=== PATIENT | male | born 1960 | race Caucasian/White ===

== ENCOUNTER 2017-05-23 18:29 | Inpatient (IN) | payer OTHER ==
[~2017-05-23] VITALS: Ht 188 cm; Wt 131.5 kg
[2017-05-23] MEDS ORDERED: IOHEXOL 350 MG/ML 10 ML VIAL (for RAD DIAG) IVCONTRAST ONE (18:30)
[2017-05-23] MEDS ORDERED: PROPOFOL 1000 MG/100 ML INJ 100 ML ONE (18:35)
[2017-05-23] MEDS ORDERED: ROCURONIUM INJ 50 MG/5 ML VIAL ONE ×2 (18:36→21:40)
[2017-05-23 19:04] LABS: AUTOMATED NEUTROPHIL # 10.3 TH/MM3 (1.8-7.7); BASOPHIL # 0.1 TH/MM3 (0-0.2); BASOPHIL % 0.4 % (0.0-2.0); EOSINOPHIL # 0.3 TH/MM3 (0-0.4); EOSINOPHIL % 1.9 % (0.0-4.0); HEMATOCRIT 37.8 % (39.0-51.0); HEMOGLOBIN 12.4 GM/DL (13.0-17.0); LYMPH % 35.5 % (9.0-44.0); LYMPHOCYTE # 6.4 TH/MM3 (1.0-4.8); MEAN CELL VOLUME 99.6 FL (80.0-100.0); MEAN CORPUSCULAR HEMOGLOBIN 32.7 PG (27.0-34.0); MEAN CORPUSCULAR HGB CONC 32.9 % (32.0-36.0); MEAN PLATELET VOLUME 8.7 FL (7.0-11.0); MONO % 4.6 % (0.0-8.0); MONOCYTE # 0.8 TH/MM3 (0-0.9); NEUT % 57.6 % (16.0-70.0); PLATELET COUNT 226 TH/MM3 (150-450); RED BLOOD COUNT 3.79 MIL/MM3 (4.50-5.90); RED CELL DISTRIBUTION WIDTH 13.7 % (11.6-17.2); WHITE BLOOD COUNT 17.9 TH/MM3 (4.0-11.0)
[2017-05-23] MEDS ORDERED: LIDOCAINE 1%/EPINEPHrine 1:100,000 SOLN 30 ML VIAL ONE (19:06)
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
[2017-05-23] MEDS ORDERED: MIDAZOLAM HCL 5 MG/ML VIAL (1 ML) ONE (19:08)
[2017-05-23 19:16] VITALS: O2SAT 96
[2017-05-23 19:16] LABS: INTERNATIONAL NORMALIZED RATIO 1.3 RATIO
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
[2017-05-23 19:28] VITALS: O2SAT 100
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
[2017-05-23 19:31] VITALS: O2SAT 100
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
[2017-05-23 19:49] VITALS: O2SAT 100
[2017-05-23] MEDS ORDERED: SODIUM CHLOR 0.9% 1000 ML INJ 1,000 ML IV SCH (19:52)
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
[2017-05-23] MEDS ORDERED: MISCELLANEOUS NURSING INFORMATION XX SCH (20:00)
[2017-05-23] MEDS ORDERED: PROPOFOL 1000 MG/100 ML INJ 100 ML IV PRN ×2 (20:00→21:30)
[2017-05-23] MEDS ORDERED: LACTULOSE SYRUP 20 GM/30 ML CUP PO PRN (20:00)
[2017-05-23] MEDS ORDERED: fentaNYL DRIP 250 ML IV PRN (20:00)
[2017-05-23] MEDS ORDERED: CHLORHEXIDINE GLUCONATE 2 % 1 PACK (2 CLOTHS) TOP PRN (20:00)
[2017-05-23] MEDS ORDERED: BISACODYL 10 MG SUPP RECTAL PRN (20:00)
[2017-05-23] MEDS ORDERED: MAGNESIUM HYDROXIDE SUSP 30 ML CUP PO PRN (20:00)
[2017-05-23] MEDS ORDERED: SENNOSIDES 8.6 MG TAB PO PRN (20:00)
[2017-05-23] MEDS ORDERED: DIPHTH/TETANUS/ACEL PERTUSSIS (BOOSTER) 0.5 ML VIAL/PFS IM ONE (20:02)
[2017-05-23] MEDS ORDERED: ceFAZolin 2 GM PREMIX 50 ML IV STA (20:02)
[2017-05-23 20:05] LABS: BANDS 1 % (0-6); BASOPHILS 1 % (0-2); LYMPHOCYTES 41 % (9-44); MONOCYTES 5 % (0-8); NEUTROPHIL # MANUAL DIFF 9.1 TH/MM3 (1.8-7.7); POLYS (SEG NEUTROPHILS) 50 % (16-70)
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
[2017-05-23] MEDS ORDERED: ETOMIDATE 40 MG/20 ML VIAL ONE (21:39)
[2017-05-23] MEDS ORDERED: SUCCINYLCHOLINE CHLORIDE 200 MG/10 ML VIAL ONE (21:41)
[2017-05-23] MEDS ORDERED: GLUCAGON 1 MG/ML VIAL OTHER PRN (21:45)
[2017-05-23] MEDS ORDERED: TERBUTALINE INJ 1 MG/ML AMP SQ PRN (21:45)
[2017-05-23] MEDS ORDERED: DEXTROSE 50% IN WATER 50 ML VIAL(D50) IV PUSH PRN (21:45)
[2017-05-23] MEDS ORDERED: NOREPINEPHRINE INJ 4 MG in SODIUM CHLOR 0.9% 250 ML INJ 246 ML IV PRN ×2 (21:45→22:15)
[2017-05-23 22:00] VITALS: BP 101/86; PULSE 90; RESP 18; TEMP 99.9; O2SAT 99
[2017-05-23] MEDS: PROPOFOL 1000 MG/100 ML INJ 100 ML IV PRN (22:41)
[2017-05-23] MEDS: fentaNYL DRIP 250 ML IV PRN (22:42)
[2017-05-23] MEDS: NS + KCL 20 MEQ INJ 1,000 ML IV SCH (22:43)
[2017-05-23] MEDS: FAMOTIDINE 20 MG/2 ML VIAL IV PUSH SCH (23:00)
[2017-05-23] MEDS: DOCUSATE SODIUM 50 MG/SENNA 8.6 MG TAB PO SCH (23:00)
[2017-05-23] MEDS: levETIRAcetam INJ 500 MG in SODIUM CHLORIDE 0.9% INJ 100 ML IV SCH (23:04)
[2017-05-23] MEDS: INSULIN ASPART SUPPLEMENTAL SCALE SQ SCH (23:16)
[2017-05-24] VITALS (12 sets, daily range): BP systolic 94–120; BP diastolic 55–73; PULSE 89–105; RESP 18–22; TEMP 100–101.7; O2SAT 94–100
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
[2017-05-24] MEDS: ACETAMINOPHEN 325 MG TAB PO PRN (03:37)
[2017-05-24] MEDS: CHLORHEXIDINE GLUCONATE 2 % 1 PACK (2 CLOTHS) TOP SCH (04:00)
[2017-05-24] MEDS: NS + KCL 20 MEQ INJ 1,000 ML IV SCH (04:10)
[2017-05-24] MEDS: PROPOFOL 1000 MG/100 ML INJ 100 ML IV PRN ×4 (04:22→23:50)
[2017-05-24 04:26] LABS: AUTOMATED NEUTROPHIL # 6.9 TH/MM3 (1.8-7.7); BASOPHIL % 0.2 % (0.0-2.0); HEMATOCRIT 27.5 % (39.0-51.0); HEMOGLOBIN 9.4 GM/DL (13.0-17.0); LYMPH % 10.8 % (9.0-44.0); MEAN CELL VOLUME 97.1 FL (80.0-100.0); MEAN CORPUSCULAR HEMOGLOBIN 33.3 PG (27.0-34.0); MEAN CORPUSCULAR HGB CONC 34.3 % (32.0-36.0); MONO % 11.9 % (0.0-8.0); MONOCYTE # 1.1 TH/MM3 (0-0.9); NEUT % 77.1 % (16.0-70.0); PLATELET COUNT 172 TH/MM3 (150-450); RED BLOOD COUNT 2.83 MIL/MM3 (4.50-5.90); RED CELL DISTRIBUTION WIDTH 13.3 % (11.6-17.2); WHITE BLOOD COUNT 8.9 TH/MM3 (4.0-11.0)
[2017-05-24 04:48] LABS: BICARBONATE 21.3 MEQ/L (21.0-32.0); CALCIUM 7.4 MG/DL (8.5-10.1); CREATININE 2.03 MG/DL (0.60-1.30); MAGNESIUM 1.7 MG/DL (1.5-2.5)
[2017-05-24 05:01] LABS: CALCIUM-PROTEIN CORRECTED 8.8 MG/DL (8.5-10.1); TOTAL PROTEIN 4.7 GM/DL (6.4-8.2)
--- NOTE | 2017-05-24 05:55 | RADRPT ---
EXAM DATE/TIME: 05/24/2017 04:43 [facility] COMPARISON: CHEST SINGLE AP, May 23, 2017, 18:29. INDICATIONS : Respiratory distress MEDICAL HISTORY : None. SURGICAL HISTORY : None. ENCOUNTER: Subsequent ACUITY: 3 days PAIN SCORE: Non-responsive. LOCATION: Bilateral chest FINDINGS: There is bibasilar atelectasis. ET tube, and NG tube have not changed. Arterial area seen with dense calcifications adjacent to bilateral scapula chronic in nature. CONCLUSION: Bibasilar atelectasis. Megan Sanchez MD on May 24, 2017 at 5:53 Board Certified Radiologist. This report was verified electronically.
[2017-05-24] MEDS: INSULIN ASPART SUPPLEMENTAL SCALE SQ SCH ×2 (06:00→18:00)
[2017-05-24] MEDS ORDERED: SODIUM CHLOR 0.9% 1000 ML INJ 1,000 ML IV ONE (06:45)
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
[2017-05-24] MEDS: CHLORHEXIDINE 0.12% (ORAL KIT) 15 ML CUP MT SCH ×2 (08:00→20:41)
[2017-05-24] MEDS ORDERED: CHLORHEXIDINE 0.12% (ORAL KIT) 15 ML CUP MT SCH (08:00)
[2017-05-24] MEDS: DOCUSATE SODIUM 50 MG/SENNA 8.6 MG TAB PO SCH ×2 (08:44→20:41)
[2017-05-24] MEDS: levETIRAcetam INJ 500 MG in SODIUM CHLORIDE 0.9% INJ 100 ML IV SCH ×2 (08:51→20:40)
[2017-05-24] MEDS: FAMOTIDINE 20 MG/2 ML VIAL IV PUSH SCH ×2 (08:52→20:40)
[2017-05-24] MEDS ORDERED: SODIUM CHLOR 0.9% 1000 ML INJ 1,000 ML IV SCH (10:00)
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
[2017-05-24] MEDS ORDERED: NOREPINEPHRINE 4 MG/4 ML AMP ONE (12:20)
--- NOTE | 2017-05-24 12:57 | PD.PROCEDR ---
Procedure Note Procedure DX: Traumatic Brain Injury OP: Insertion Left Radial Arterial Line ([id number]) Procedure: Bennett test normal left hand. Left wrist supinated, prepped and draped. Left radial artery cannulated with ultrasound guidance and wire advanced. Cannula advanced over wire to 3 cm. Good waveform observed. Dressing applied. Circulation to left hand intact after procedure. Brandon Moore MD May 24, 2017 12:57
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
[2017-05-24] MEDS ORDERED: BACITRACIN TOP OINT 15 GM TUBE TOPICAL SCH (14:15)
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
[2017-05-24] MEDS: SODIUM CHLORIDE 23.4% INJ 188 MEQ in SODIUM CHLOR 0.9% 1000 ML INJ 1,000 ML IV SCH (14:48)
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
[2017-05-24] MEDS: RESP: ALBUTEROL 2.5 MG/IPRATROPIUM 0.5 MG NEB (SCH) NEB ×2 (16:50→20:31)
[2017-05-24] MEDS: fentaNYL DRIP 250 ML IV PRN (17:50)
[2017-05-24] MEDS: NOREPINEPHRINE INJ 8 MG in SODIUM CHLORID 0.9% 500 ML INJ 492 ML IV PRN (20:54)
[2017-05-25] VITALS (15 sets, daily range): BP systolic 115–135; BP diastolic 61–69; PULSE 67–95; RESP 22–24; TEMP 99.5–100.6; O2SAT 94–100
[2017-05-25] MEDS: RESP: ALBUTEROL 2.5 MG/IPRATROPIUM 0.5 MG NEB (SCH) NEB ×4 (03:18→20:24)
[2017-05-25] MEDS: CHLORHEXIDINE GLUCONATE 2 % 1 PACK (2 CLOTHS) TOP SCH (04:00)
--- NOTE | 2017-05-25 04:18 | RADRPT ---
EXAM DATE/TIME: 05/25/2017 04:01 [facility] COMPARISON: No previous studies available for comparison. INDICATIONS : Follw up hemorrhage. RADIATION DOSE: 57.46 CTDIvol (mGy) MEDICAL HISTORY : Non-responsive. SURGICAL HISTORY : Non-responsive. ENCOUNTER: Subsequent ACUITY: 2 days PAIN SCALE: Non-responsive LOCATION: chest TECHNIQUE: Multiple contiguous axial images were obtained of the head. Using automated exposure control and adj ustment of the mA and/or kV according to patient size, radiation dose was kept as low as reasonably a chievable to obtain optimal diagnostic quality images. DICOM format image data is available electro nically for review and comparison. FINDINGS: There is an evolving left-sided subdural hematoma which is less dense on the prior exam compared with the previous examination. No significant change in size. Scattered subarachnoid hemorrhage slightly less apparent than on the prior examination. There is an evolving left frontal lobe contusion and tem poral lobe contusion. There is probably some hemorrhage on the tentorium. Again seen are skull base fractures. Extensive scalp swelling remains present CONCLUSION: 1. Evolving left subdural hematoma, left frontal, temporal lobe contusions and subarachnoid hemorrhag e. No new intracranial hemorrhage is identified. Jony Juarez MD on May 25, 2017 at 4:13 Board Certified Radiologist. This report was verified electronically.
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
[2017-05-25 05:58] LABS: AUTOMATED NEUTROPHIL # 4.2 TH/MM3 (1.8-7.7); BASOPHIL % 0.3 % (0.0-2.0); EOSINOPHIL % 0.1 % (0.0-4.0); LYMPH % 11.4 % (9.0-44.0); LYMPHOCYTE # 0.6 TH/MM3 (1.0-4.8); MEAN CELL VOLUME 95.7 FL (80.0-100.0); MEAN CORPUSCULAR HEMOGLOBIN 33.2 PG (27.0-34.0); MEAN CORPUSCULAR HGB CONC 34.7 % (32.0-36.0); MEAN PLATELET VOLUME 8.8 FL (7.0-11.0); MONO % 13.1 % (0.0-8.0); MONOCYTE # 0.7 TH/MM3 (0-0.9); NEUT % 75.1 % (16.0-70.0); PLATELET COUNT 123 TH/MM3 (150-450); RED BLOOD COUNT 2.09 MIL/MM3 (4.50-5.90); RED CELL DISTRIBUTION WIDTH 13.5 % (11.6-17.2); WHITE BLOOD COUNT 5.5 TH/MM3 (4.0-11.0)
[2017-05-25 06:09] LABS: HEMOGLOBIN 6.9 GM/DL (13.0-17.0)
[2017-05-25] MEDS: PROPOFOL 1000 MG/100 ML INJ 100 ML IV PRN ×4 (06:13→23:22)
[2017-05-25 06:27] LABS: ALBUMIN 2.3 GM/DL (3.4-5.0); AST (GOT) 64 U/L (15-37); BICARBONATE 23.5 MEQ/L (21.0-32.0); BLOOD UREA NITROGEN 24 MG/DL (7-18); CALCIUM 7.5 MG/DL (8.5-10.1); CHLORIDE 111 MEQ/L (98-107); CREATININE 1.24 MG/DL (0.60-1.30); GLOMERULAR FILTRATION RATE 60 ML/MIN (>89); GLUCOSE,RANDOM 149 MG/DL (74-106); SODIUM (NA) 141 MEQ/L (136-145)
[2017-05-25 06:36] LABS: ALKALINE PHOSPHATASE 38 U/L (45-117); ALT (GPT) 49 U/L (12-78); TOTAL BILIRUBIN ADULT 0.4 MG/DL (0.2-1.0); TOTAL PROTEIN 4.9 GM/DL (6.4-8.2)
[2017-05-25] MEDS: INSULIN ASPART SUPPLEMENTAL SCALE SQ SCH ×4 (07:00→17:47)
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
[2017-05-25] MEDS: CHLORHEXIDINE 0.12% (ORAL KIT) 15 ML CUP MT SCH ×2 (08:00→19:58)
[2017-05-25] MEDS: BACITRACIN TOP OINT 15 GM TUBE TOPICAL SCH (08:29)
[2017-05-25] MEDS ORDERED: SODIUM CHLOR 0.9% 250 ML INJ 250 ML IV ONE (08:30)
[2017-05-25] MEDS: DOCUSATE SODIUM 50 MG/SENNA 8.6 MG TAB PO SCH ×2 (08:33→19:58)
[2017-05-25] MEDS: FAMOTIDINE 20 MG/2 ML VIAL IV PUSH SCH ×2 (08:33→19:57)
[2017-05-25] MEDS: levETIRAcetam INJ 500 MG in SODIUM CHLORIDE 0.9% INJ 100 ML IV SCH ×2 (08:34→19:57)
[2017-05-25] MEDS: fentaNYL DRIP 250 ML IV PRN (08:34)
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
[2017-05-25] MEDS ORDERED: FUROSEMIDE 40 MG/4 ML VIAL IV PUSH ONE (12:00)
[2017-05-25 12:36] LABS: HEMATOCRIT 26.3 % (39.0-51.0); HEMOGLOBIN 9.4 GM/DL (13.0-17.0)
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
[2017-05-25] MEDS: SODIUM CHLORIDE 23.4% INJ 188 MEQ in SODIUM CHLOR 0.9% 1000 ML INJ 1,000 ML IV SCH (15:00)
[2017-05-25] MEDS: ARTIFICIAL TEARS OPTH OINT 3.5 APPLIC/3.5 GM TUBO EACH EYE SCH ×2 (16:02→19:58)
[2017-05-25] MEDS: ACETAMINOPHEN 325 MG TAB PO PRN (22:10)
[2017-05-25] MEDS ORDERED: LORazepam 2 MG/ML VIAL ONE (23:21)
[2017-05-26] VITALS (22 sets, daily range): BP systolic 96–156; BP diastolic 51–66; PULSE 88–140; RESP 21–40; TEMP 97.9–104.5; O2SAT 89–100
[2017-05-26] MEDS: fentaNYL DRIP 250 ML IV PRN ×3 (00:27→09:55)
[2017-05-26] MEDS ORDERED: ACETAMINOPHEN 1000 MG/100 ML 100 ML IV ONE (00:30)
[2017-05-26 00:44] LABS: AMORPHOUS SEDIMENT, URINE RARE; BILIRUBIN, URINE NEG (NEG); BLOOD, URINE MOD (NEG); GLUCOSE,URINE NEG (NEG); KETONE, URINE NEG (NEG); NITRITE,URINE NEG (NEG); URINE COLOR YELLOW (YELLW/STRAW); URINE LEUKOCYTE ESTERASE NEG (NEG)
[2017-05-26] MEDS ORDERED: LORazepam 2 MG/ML VIAL IV PRN (00:45)
[2017-05-26] MEDS: MIDAZOLAM 100 MG/NS 100 ML DRIP Premix IV PRN ×3 (01:22→22:09)
[2017-05-26] MEDS: PROPOFOL 1000 MG/100 ML INJ 100 ML IV PRN ×5 (02:35→09:54)
[2017-05-26] MEDS: CHLORHEXIDINE GLUCONATE 2 % 1 PACK (2 CLOTHS) TOP SCH (02:37)
[2017-05-26] MEDS: RESP: ALBUTEROL 2.5 MG/IPRATROPIUM 0.5 MG NEB (SCH) NEB ×4 (03:24→22:11)
[2017-05-26 04:53] LABS: AUTOMATED NEUTROPHIL # 1.8 TH/MM3 (1.8-7.7); BASOPHIL % 0.3 % (0.0-2.0); EOSINOPHIL % 0.3 % (0.0-4.0); HEMOGLOBIN 8.3 GM/DL (13.0-17.0); LYMPH % 18.1 % (9.0-44.0); LYMPHOCYTE # 0.5 TH/MM3 (1.0-4.8); MEAN CELL VOLUME 93.6 FL (80.0-100.0); MEAN CORPUSCULAR HEMOGLOBIN 32.4 PG (27.0-34.0); MEAN CORPUSCULAR HGB CONC 34.6 % (32.0-36.0); MEAN PLATELET VOLUME 8.9 FL (7.0-11.0); MONO % 9.2 % (0.0-8.0); MONOCYTE # 0.2 TH/MM3 (0-0.9); NEUT % 72.1 % (16.0-70.0); PLATELET COUNT 104 TH/MM3 (150-450); RED BLOOD COUNT 2.57 MIL/MM3 (4.50-5.90); RED CELL DISTRIBUTION WIDTH 14.6 % (11.6-17.2); WHITE BLOOD COUNT 2.5 TH/MM3 (4.0-11.0)
[2017-05-26] MEDS: SODIUM CHLORIDE 23.4% INJ 188 MEQ in SODIUM CHLOR 0.9% 1000 ML INJ 1,000 ML IV SCH (05:17)
[2017-05-26 05:22] LABS: ALBUMIN 2.3 GM/DL (3.4-5.0); AST (GOT) 51 U/L (15-37); BICARBONATE 25.4 MEQ/L (21.0-32.0); BLOOD UREA NITROGEN 20 MG/DL (7-18); CALCIUM 7.9 MG/DL (8.5-10.1); CHLORIDE 110 MEQ/L (98-107); CREATININE 1.09 MG/DL (0.60-1.30); GLOMERULAR FILTRATION RATE 70 ML/MIN (>89); GLUCOSE,RANDOM 124 MG/DL (74-106); SODIUM (NA) 142 MEQ/L (136-145)
[2017-05-26 05:24] LABS: ALT (GPT) 40 U/L (12-78)
[2017-05-26 05:25] LABS: ALKALINE PHOSPHATASE 39 U/L (45-117); TOTAL BILIRUBIN ADULT 0.6 MG/DL (0.2-1.0); TOTAL PROTEIN 5.3 GM/DL (6.4-8.2)
[2017-05-26] MEDS ORDERED: ONDANSETRON HCL 4 MG/2 ML VIAL IV PUSH PRN (05:45)
[2017-05-26] MEDS: ACETAMINOPHEN 325 MG TAB PO SCH ×3 (05:49→18:34)
[2017-05-26] MEDS: ACETAMINOPHEN 650 MG/20.3 ML UDC OG-TUBE PRN (05:50)
[2017-05-26] MEDS: INSULIN ASPART SUPPLEMENTAL SCALE SQ SCH ×4 (05:55→18:00)
--- NOTE | 2017-05-26 05:57 | RADRPT ---
EXAM DATE/TIME: 05/26/2017 04:20 [facility] COMPARISON: CHEST SINGLE AP, May 25, 2017, 2:55. INDICATIONS : Short of breath, respiratory disease. MEDICAL HISTORY : None. SURGICAL HISTORY : None. ENCOUNTER: Subsequent ACUITY: 3 days PAIN SCORE: 0/10 LOCATION: Bilateral chest FINDINGS: A single AP portable semierect view of the chest was obtained again demonstrates the endotracheal tub e in place with the tip approximately 4-5 cm above the clarisse. The nasogastric tube remains in place. Hazy airspace disease is noted at the lung bases. The heart size is at the upper limits of normal. CONCLUSION: Hazy airspace disease is now noted the lung bases. On the prior study there is patchy atelectasis. Servando Mccabe MD on May 26, 2017 at 5:55 Board Certified Radiologist. This report was verified electronically.
[2017-05-26] MEDS ORDERED: Vancomycin Consult Pharmacy 1 EA OTHER PRN (07:00)
[2017-05-26] MEDS ORDERED: EPINEPHrine (1:1000) INJ 2 MG in DEXTROSE 5% IN WATER INJ 250 ML IV PRN ×2 (07:00)
[2017-05-26] MEDS ORDERED: NOREPINEPHRINE INJ 8 MG in SODIUM CHLORID 0.9% 500 ML INJ 492 ML IV PRN (07:00)
[2017-05-26] MEDS ORDERED: SODIUM CHLORIDE 0.9% FLUSH 10 ML FLUSH IV FLUSH PRN (07:30)
--- NOTE | 2017-05-26 07:32 | PD.PROCEDR ---
Central Line Procedure REASON FOR PROCEDURE Central venous access PROCEDURE PERFORMED Central line placement: R IJ CVL CONSENT Informed consent for procedure was obtained. The risks and benefits of the procedure were discussed to include but limited to bleeding, clot formation, infection, and even . ANESTHESIA Local injection of 1% Lidocaine DESCRIPTION OF THE PROCEDURE The patient was placed in supine, mild Trendelenburg position. The area was exposed and cleansed with ChloraPrep, times two. Large sterile drape was used to cover the patient, with the site exposed, under sterile conditions including cap, face mask, sterile gown, and sterile gloves. On single attempt, the introducer needle was inserted with negative pressure in syringe and venous flash was obtained. The guide wire was then advanced without any restriction and the needle was removed. The dilator was used without any complications. Using Seldinger technique the antibiotic coated triple-lumen catheter was advanced over the guide wire to a depth of 16 centimeters. The guide wire was removed. All ports were aspirated with dark venous blood return and flushed easily with sterile saline. All ports were capped. Antibiotic disc was placed around central line at puncture site. The central line was secured to the skin with two interrupted 2.0 silk sutures. The area was bandaged with sterile see- through central line bandage. RADIOLOGICAL DATA Ultrasound guidance was used to locate the right internal jugular vein. Doppler /color flow was used to confirm venous flow. COMPLICATIONS: No apparent complications ESTIMATED BLOOD LOSS: Less than 1 cc. Donald Littlejohn MD May 26, 2017 07:32
--- NOTE | 2017-05-26 07:57 | RADRPT ---
EXAM DATE/TIME: 05/26/2017 07:36 [facility] COMPARISON: CT THORAX W CONTRAST, May 23, 2017, 19:00. CT THORACIC SPINE W CONTRAST, May 23, 2017, 19: 00. CHEST SINGLE AP, May 26, 2017, 4:20. INDICATIONS : Central line placement. MEDICAL HISTORY : None. SURGICAL HISTORY : None. ENCOUNTER: Initial ACUITY: 1 day PAIN SCORE: Non-responsive. LOCATION: Bilateral chest FINDINGS: A single portable frontal view of the chest shows interval placement of a right internal jugular vein central venous line. The tip is at the azygocaval confluence. No pneumothorax. Tip of the endotrache al tube 9 cm cephalad to the clarisse. Nasogastric tube coiled in the fundus of the stomach. Left basil ar consolidation is unchanged. Right lung is clear. Heart is normal in size. Ossified structures over lie the axillas bilaterally. CONCLUSION: 1. Central line in good position without pneumothorax. 2. Left basilar consolidation is unchanged. Michael Santoro Jr., MD on May 26, 2017 at 7:53 Board Certified Radiologist. This report was verified electronically.
[2017-05-26] MEDS: CHLORHEXIDINE 0.12% (ORAL KIT) 15 ML CUP MT SCH ×2 (08:00→20:56)
[2017-05-26] MEDS ORDERED: POTASSIUM CHLOR 40 MEQ PREMIX 100 ML IV ONE (08:00)
[2017-05-26] MEDS: PIPERACIL-TAZO 3.375 GM PREMIX 50 ML IV SCH ×3 (08:00→21:16)
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
[2017-05-26] MEDS: NOREPINEPHRINE INJ 8 MG in SODIUM CHLORID 0.9% 500 ML INJ 492 ML IV PRN ×2 (08:33→12:41)
[2017-05-26] MEDS ORDERED: SODIUM CHLORID 0.9% 500 ML INJ 500 ML IV ONE (08:45)
[2017-05-26] MEDS: levETIRAcetam INJ 500 MG in SODIUM CHLORIDE 0.9% INJ 100 ML IV SCH ×2 (09:00→21:15)
[2017-05-26] MEDS: ARTIFICIAL TEARS OPTH OINT 3.5 APPLIC/3.5 GM TUBO EACH EYE SCH ×2 (09:00→20:56)
[2017-05-26] MEDS: FAMOTIDINE 20 MG/2 ML VIAL IV PUSH SCH ×2 (09:00→21:16)
[2017-05-26] MEDS: SODIUM CHLORIDE 0.9% FLUSH 10 ML FLUSH IV FLUSH SCH (09:00)
[2017-05-26] MEDS: BACITRACIN TOP OINT 15 GM TUBE TOPICAL SCH (09:00)
[2017-05-26] MEDS: DOCUSATE SODIUM 50 MG/SENNA 8.6 MG TAB PO SCH ×2 (09:00→21:16)
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
--- NOTE | 2017-05-26 09:44 | ECHRPT ---
Indication: SOB, RULE OUT PE CONCLUSIONS Normal left ventricular size and wall thickness. The left ventricular systolic function is normal wi th an estimated ejection fraction in the range of 60-65%. Normal wall motion. Structurally normal tricuspid valve. Trace tricuspid regurgitation. No pericardial effusion. BP: / HR: Rhythm: MEASUREMENTS (Male / Female) Normal Values Technical Quality: 2D ECHO LV Diastolic Diameter PLAX 4.6 cm 4.2 - 5.9 / 3.9 - 5.3 cm LV Systolic Diameter PLAX 3.8 cm IVS Diastolic Thickness 1.1 cm 0.6 - 1.0 / 0.6 - 0.9 cm LVPW Diastolic Thickness 0.7 cm 0.6 - 1.0 / 0.6 - 0.9 cm LV Relative Wall Thickness 0.4 RV Internal Dim ED PLAX 2.5 cm LA Systolic Diameter LX 3.2 cm 3.0 - 4.0 / 2.7 - 3.8 cm DOPPLER Mitral E Point Velocity 68.6 cm/s Mitral A Point Velocity 75.5 cm/s Mitral E to A Ratio 0.9 TR Peak Velocity 294.5 cm/s TR Peak Gradient 34.7 mmHg FINDINGS LEFT VENTRICLE Normal left ventricular size and wall thickness. The left ventricular systolic function is normal wi th an estimated ejection fraction in the range of 60-65%. Normal wall motion. RIGHT VENTRICLE Normal right ventricular size and systolic function. LEFT ATRIUM The left atrial size is normal. RIGHT ATRIUM The right atrial size is normal. ATRIAL SEPTUM Normal atrial septal thickness without atrial level shunting by limited color doppler interrogation. AORTA The aortic root and proximal ascending aorta are normal in size on limited imaging. MITRAL VALVE Structurally normal mitral valve. No mitral valve stenosis or regurgitation. AORTIC VALVE Trileaflet aortic valve. No aortic valve stenosis or regurgitation. TRICUSPID VALVE Structurally normal tricuspid valve. Trace tricuspid regurgitation. PULMONARY VALVE The pulmonary valve is not well visualized. VESSELS The inferior vena cava is normal in size. PERICARDIUM No pericardial effusion. Joon Reinoso MD (Electronically Signed) Final Date:26 May 2017 09:43
[2017-05-26] MEDS ORDERED: SODIUM CHLOR 0.9% 1000 ML INJ 1,000 ML IV ONE (09:45)
[2017-05-26] MEDS: VANCOMYCIN INJ 1,500 MG in SODIUM CHLORID 0.9% 500 ML INJ 500 ML IV SCH ×2 (09:52→22:10)
[2017-05-26] MEDS ORDERED: IOHEXOL 350 MG/ML 10 ML VIAL (for RAD DIAG) IVCONTRAST ONE (10:49)
--- NOTE | 2017-05-26 11:08 | RADRPT ---
EXAM DATE/TIME: 05/26/2017 10:47 [facility] COMPARISON: CT BRAIN W/O CONTRAST, May 25, 2017, 4:01. INDICATIONS : Shortness of breath, possible thrombosis. IV CONTRAST: 99 cc Omnipaque 350 (iohexol) IV ; Cumulative dose for multiple exams. RADIATION DOSE: 18.30 CTDIvol (mGy) MEDICAL HISTORY : Non-responsive. SURGICAL HISTORY : Non-responsive. ENCOUNTER: Initial ACUITY: 1 day PAIN SCALE: Non-responsive LOCATION: chest TECHNIQUE: Volumetric scanning of the chest was performed using a pulmonary embolism protocol MIP images were re constructed. Using automated exposure control and adjustment of the mA and/or kV according to patien t size, radiation dose was kept as low as reasonably achievable to obtain optimal diagnostic quality images. DICOM format image data is available electronically for review and comparison. Follow-up recommendations for detected pulmonary nodules are based at a minimum on nodule size and pa tient risk factors according to Fleischner Society Guidelines. FINDINGS: The examination is of moderate diagnostic quality. There is no large or central pulmonary embolus danilo ntified. The tertiary branches are not well-seen. There is no significant hilar or mediastinal adenopathy. There is atherosclerotic plaquing in the cor onary arteries. There are sizable bilateral pleural effusions and consolidative change in both lower lobes. No pneumo thorax is seen. The nasogastric tube and endotracheal tube are in satisfactory position. The limited portions of upper abdomen visualized are unremarkable The osseous structures are intact. CONCLUSION: 1. No large or central pulmonary embolus identified. 2. Bilateral pleural effusions and consolidative changes at both lung bases. Jacob Hernandez MD on May 26, 2017 at 11:05 Board Certified Radiologist. This report was verified electronically.
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
--- NOTE | 2017-05-26 11:22 | RADRPT ---
EXAM DATE/TIME: 05/26/2017 10:47 [place] COMPARISON: CT ABDOMEN & PELVIS W CONTRAST, May 23, 2017, 19:00. INDICATIONS : Abdominal pain. IV CONTRAST: 99 cc Omnipaque 350 (iohexol) IV ; Cumulative dose for multiple exams. ORAL CONTRAST: No oral contrast ingested. RADIATION DOSE: 22.63 CTDIvol (mGy) MEDICAL HISTORY : Non-responsive. SURGICAL HISTORY : Non-responsive. ENCOUNTER: Initial ACUITY: 1 day PAIN SCALE: Non-responsive LOCATION: Abdomen TECHNIQUE: Volumetric scanning of the abdomen and pelvis was performed. Using automated exposure control and adjustment of the mA and/or kV according to patient size, radiation dose was kept as low as reasonably achievable to obtain optimal diagnostic quality images. DICOM format image data is av ailable electronically for review and comparison. FINDINGS: LOWER LUNGS: Dense bilateral airspace consolidation at the lung bases without air bronchograms. LIVER: Homogeneous density without lesion. There is no dilation of the biliary tree. Increased e chogenicity in the gallbladder may reflect vicarious excretion or a small amount of sludge. SPLEEN: Normal size without lesion. PANCREAS: Within normal limits. KIDNEYS: Normal in size and shape. There is no mass, stone or hydronephrosis. ADRENAL GLANDS: 1.8 cm left adrenal mass unchanged from prior exam. VASCULAR: There is no aortic aneurysm. BOWEL/MESENTERY: There is an NGT in the stomach. Focal loop of nondistended fluid-filled small josh wel in the mid lower pelvis. This finding is nonspecific. Bowel is otherwise unremarkable. No evidenc e for obstruction. No significant free fluid or free air. No genital fluid collection. ABDOMINAL WALL: Within normal limits. RETROPERITONEUM: Interval evolution of left psoas hematoma. Single slightly prominent left iliac node measuring 1 iliac node BLADDER: Laxity decompressed secondary to [place] catheter. REPRODUCTIVE: Within normal limits. INGUINAL: There is no lymphadenopathy or hernia. MUSCULOSKELETAL: Redemonstration of transverse process fractures at L1 and L4. Redemonstration of T12 superior endplate compression fracture. CONCLUSION: 1. Progressive dense bilateral airspace consolidation at the lung bases likely reflecting contusion/a telectasis. 2. Redemonstration of multiple left transverse process fractures and T12 superior plate compression f racture with evolving left psoas hematoma. 3. Indeterminate density left adrenal mass. This may be further evaluated on an outpatient basis with MRI adrenal mass protocol as indicated. 4. Additional stable ancillary findings, as above. Praveen Bach MD on May 26, 2017 at 11:09 Board Certified Radiologist. This report was verified electronically.
[2017-05-26] MEDS ORDERED: ROCURONIUM INJ 50 MG/5 ML VIAL ONE ×2 (12:26→12:30)
[2017-05-26] MEDS ORDERED: SODIUM BICARBONATE 8.4% INJ 50 MEQ/50 ML SYR ONE (13:02)
[2017-05-26] MEDS ORDERED: SODIUM BICARBONATE 8.4% INJ 50 MEQ/50 ML SYR IV ONE (13:45)
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
--- NOTE | 2017-05-26 15:46 | MG ---
cc: MARLENI CHAMORRO M.D. Lab No: Date: 05/26/2017 Age: Sex: M Race: REQUESTING PHYSICIAN Dr. Thompson INTRODUCTION A stat EEG was obtained on this 56-year-old who is intubated on versed. MEDICATIONS Also may include: 1. Diprivan. 2. Fentanyl. CT scan showed left subdural hematoma and subarachnoid hemorrhage, bone fractures. DESCRIPTION The EEG is showing low amplitude beta rhythms diffusely. There is some intermixed theta and delta activity frontally. No paroxysmal or epileptiform features present. Photic stimulation was unremarkable. INTERPRETATION Abnormal EEG because of slowing and attenuation. A lot of the EEG findings can be explained on the basis of sedation but probable associated diffuse disturbance of cerebral function also present. No epileptiform features are present. MD SOFIA Sheikh/KK /3:14 PM /3:30 PM
[2017-05-26] MEDS ORDERED: SODIUM BICARBONATE 8.4% INJ 150 MEQ in DEXTROSE 5% IN WATE 1000ML INJ 1,000 ML IV SCH ×2 (17:00)
--- NOTE | 2017-05-26 17:22 | PD.PROCEDR ---
Procedure Note Procedure DX: Pneumonia, Hypoxemia, Respiratory Failure (J96.01) OP: Bronchoscopy (18042) Procedure: Consents and time out. Patient on mechanical ventilation and usual ICU monitoring in place. Scope was passed through a side port in the vent circuit. The tracheobronchial tree was uninjured and upper segments were clean. The basilar segments on the left side were plugged with thin brown foul- appearing sputum and large amounts were suctioned out and sent for culture. The basilar segments on the right side were similarly suctioned and brown material was sent for culture. All bronchial segments were suctioned clean. Sats were maintained > 88% throughout the procedure. Brandon Moore MD May 26, 2017 17:22
[2017-05-26] MEDS: EPINEPHrine (1:1000) INJ 2 MG in SODIUM CHLOR 0.9% 250 ML INJ 250 ML IV PRN (19:42)
[2017-05-26] MEDS: SODIUM BICARBONATE 8.4% INJ 150 MEQ in WATER STERILE FOR INJ 850 ML IV SCH (20:56)
[2017-05-26 22:56] LABS: HEMATOCRIT 24.6 % (39.0-51.0); HEMOGLOBIN 8.6 GM/DL (13.0-17.0)
[2017-05-26] MEDS ORDERED: ROCURONIUM INJ 50 MG/5 ML VIAL IV ONE (23:40)
[2017-05-27] VITALS (20 sets, daily range): BP systolic 98–125; BP diastolic 54–86; PULSE 89–116; RESP 16–22; TEMP 96.9–102.2; O2SAT 80–100
[2017-05-27] MEDS: POTASSIUM CHLOR 40 MEQ PREMIX 100 ML IV SCH ×2 (00:13→04:09)
[2017-05-27] MEDS: EPOPROSTENOL NEB SOLUTION 50 NG/KG/MIN 100 ML NEB SCH ×6 (00:14→23:42)
[2017-05-27] MEDS ORDERED: POTASSIUM CHLORIDE 25 MEQ EFFERVESCENT TAB PO ONE (00:15)
[2017-05-27] MEDS: EPINEPHrine (1:1000) INJ 2 MG in SODIUM CHLOR 0.9% 250 ML INJ 250 ML IV PRN ×4 (00:21→15:00)
[2017-05-27] MEDS: PIPERACIL-TAZO 3.375 GM PREMIX 50 ML IV SCH ×4 (02:03→19:55)
--- NOTE | 2017-05-27 02:13 | RADRPT ---
EXAM DATE/TIME: 05/27/2017 01:56 [facility] COMPARISON: CHEST SINGLE AP, May 26, 2017, 9:06. INDICATIONS : Short of breath. MEDICAL HISTORY : None. SURGICAL HISTORY : None. ENCOUNTER: Subsequent ACUITY: 1 week PAIN SCORE: 0/10 LOCATION: Bilateral chest FINDINGS: A single AP portable semierect view the chest was obtained. The Dobbhoff feeding tube loops back upon itself in the distal esophagus with tip projected over the lower cervical spine region. The right in ternal jugular central venous line remains in place. Endotracheal tube remains in place with the tip at the level of thoracic inlet. The nasogastric tube has been removed. There is increased opacity in the perihilar regions and both lung bases. The left costophrenic angle is cut off exam. The right is blunted. The heart size is at the upper limits of normal. CONCLUSION: 1. The Dobbhoff feeding tube loops back upon itself with the tip projected over the lower cervical sp ine. 2. Increasing opacity in the perihilar regions and both lung bases which could indicate fluid overloa d or congestive heart failure. Servando Mccabe MD on May 27, 2017 at 2:10 Board Certified Radiologist. This report was verified electronically.
--- NOTE | 2017-05-27 02:15 | RADRPT ---
EXAM DATE/TIME: 05/27/2017 02:01 [facility] COMPARISON: CHEST SINGLE AP, May 27, 2017, 1:56. INDICATIONS : Dobhoff placement. MEDICAL HISTORY : None. SURGICAL HISTORY : None. ENCOUNTER: Subsequent ACUITY: 1 week PAIN SCORE: 0/10 LOCATION: Bilateral abdomen FINDINGS: A single AP view of the upper and mid abdomen were obtained and demonstrate the Dobbhoff feeding tube loops back upon itself in the distal esophagus and heading cephalad. On the chest x-ray examination performed at 1: 56 hours. The tip is projected over the lower cervical spine. There are multiple overlying electrocar diogram leads. Abnormal opacity is present in both lung bases and costophrenic angles appear blunted. The bowel gas pattern is unremarkable. CONCLUSION: The Dobbhoff feeding tube loops back upon itself in the distal esophagus. Servando Mccabe MD on May 27, 2017 at 2:12 Board Certified Radiologist. This report was verified electronically.
--- NOTE | 2017-05-27 02:44 | RADRPT ---
EXAM DATE/TIME: 05/27/2017 02:36 [facility] COMPARISON: ABDOMEN SINGLE VIEW, May 27, 2017, 2:01. INDICATIONS : Dobhoff placement. MEDICAL HISTORY : None. SURGICAL HISTORY : None. ENCOUNTER: Subsequent ACUITY: 1 week PAIN SCORE: 0/10 LOCATION: Bilateral chest FINDINGS: The feeding tube extends down into the stomach then loops back upon itself and extends up to at least the mid esophagus. Bowel gas pattern is unremarkable. There are bilateral effusions and abnormal opa city at the lung bases. CONCLUSION: The feeding tube extends down into the stomach then loops back upon itself and extend s backup the esophagus to least the level of the midesophagus. Servando Mccabe MD on May 27, 2017 at 2:42 Board Certified Radiologist. This report was verified electronically.
[2017-05-27] MEDS: NOREPINEPHRINE INJ 8 MG in SODIUM CHLORID 0.9% 500 ML INJ 492 ML IV PRN ×2 (03:47→11:42)
--- NOTE | 2017-05-27 03:47 | RADRPT ---
EXAM DATE/TIME: 05/27/2017 03:20 [facility] COMPARISON: ABDOMEN SINGLE VIEW, May 27, 2017, 2:36. INDICATIONS : NG tube placement. MEDICAL HISTORY : None. SURGICAL HISTORY : None. ENCOUNTER: Subsequent ACUITY: 1 week PAIN SCORE: Non-responsive. LOCATION: Bilateral abdomen. FINDINGS: The Dobbhoff feeding tube is now looped back upon itself in the distal esophagus with the tip project ed above the level of the midesophagus and not on the film. Abnormal opacity remains in the lung base s with blunting of costophrenic angles right greater than left. The bowel gas pattern remains unremar kable. CONCLUSION: The Dobbhoff feeding tube loops back upon itself in the distal esophagus. Servando Mccabe MD on May 27, 2017 at 3:44 Board Certified Radiologist. This report was verified electronically.
--- NOTE | 2017-05-27 03:48 | RADRPT ---
EXAM DATE/TIME: 05/27/2017 03:35 [facility] COMPARISON: ABDOMEN SINGLE VIEW, May 27, 2017, 3:20. INDICATIONS : Dobhoff placement. MEDICAL HISTORY : None. SURGICAL HISTORY : None. ENCOUNTER: Subsequent ACUITY: 1 week PAIN SCORE: 0/10 LOCATION: Bilateral abdomen FINDINGS: The feeding tube tip is now located in the left mainstem bronchus projected over the left lower lobe. Abnormal opacity remains at the lung bases with blunting of costophrenic angles right greater than l eft. The bowel gas pattern appears unremarkable. CONCLUSION: The feeding tube tip is located in the left lower lobe bronchus. Servando Mccabe MD on May 27, 2017 at 3:46 Board Certified Radiologist. This report was verified electronically.
[2017-05-27] MEDS: CHLORHEXIDINE GLUCONATE 2 % 1 PACK (2 CLOTHS) TOP SCH (04:00)
--- NOTE | 2017-05-27 04:24 | RADRPT ---
EXAM DATE/TIME: 05/27/2017 03:57 [facility] COMPARISON: ABDOMEN SINGLE VIEW, May 27, 2017, 3:35. INDICATIONS : Dobhoff placement. MEDICAL HISTORY : None. SURGICAL HISTORY : None. ENCOUNTER: Subsequent ACUITY: 1 week PAIN SCORE: 0/10 LOCATION: Bilateral abdomen FINDINGS: The Dobbhoff feeding tube remains located in the left lower lobe bronchus. Bilateral pleural effusion s are noted with consolidation at both lung bases. The bowel gas pattern remains unremarkable. CONCLUSION: The Dobbhoff feeding tube remains located in the left lower lobe bronchus. Servando Mccabe MD on May 27, 2017 at 4:22 Board Certified Radiologist. This report was verified electronically.
[2017-05-27] MEDS: RESP: ALBUTEROL 2.5 MG/IPRATROPIUM 0.5 MG NEB (SCH) NEB ×5 (04:28→23:25)
[2017-05-27 05:29] LABS: BASOPHIL % 0.2 % (0.0-2.0); EOSINOPHIL % 0.7 % (0.0-4.0); HEMATOCRIT 25.2 % (39.0-51.0); HEMOGLOBIN 8.8 GM/DL (13.0-17.0); LYMPH % 15.6 % (9.0-44.0); LYMPHOCYTE # 0.2 TH/MM3 (1.0-4.8); MEAN CELL VOLUME 91.5 FL (80.0-100.0); MEAN CORPUSCULAR HEMOGLOBIN 31.8 PG (27.0-34.0); MEAN CORPUSCULAR HGB CONC 34.8 % (32.0-36.0); MEAN PLATELET VOLUME 8.7 FL (7.0-11.0); MONO % 4.2 % (0.0-8.0); MONOCYTE # 0.1 TH/MM3 (0-0.9); NEUT % 79.3 % (16.0-70.0); PLATELET COUNT 92 TH/MM3 (150-450); RED BLOOD COUNT 2.76 MIL/MM3 (4.50-5.90); RED CELL DISTRIBUTION WIDTH 15.5 % (11.6-17.2); WHITE BLOOD COUNT 1.2 TH/MM3 (4.0-11.0)
[2017-05-27 05:58] LABS: ALBUMIN 1.5 GM/DL (3.4-5.0); BICARBONATE 25.1 MEQ/L (21.0-32.0); CALCIUM 7.1 MG/DL (8.5-10.1); CALCIUM-PROTEIN CORRECTED 8.6 MG/DL (8.5-10.1); CREATININE 1.06 MG/DL (0.60-1.30); TOTAL BILIRUBIN ADULT 0.7 MG/DL (0.2-1.0); TOTAL PROTEIN 4.4 GM/DL (6.4-8.2)
[2017-05-27] MEDS: ACETAMINOPHEN 325 MG TAB PO SCH ×3 (06:00→12:00)
[2017-05-27] MEDS: INSULIN ASPART SUPPLEMENTAL SCALE SQ SCH ×5 (06:00→23:48)
[2017-05-27] MEDS ORDERED: SODIUM CHLORIDE 23.4% INJ 188 MEQ in SODIUM CHLOR 0.9% 1000 ML INJ 1,000 ML IV SCH (06:30)
[2017-05-27] MEDS: SODIUM BICARBONATE 8.4% INJ 150 MEQ in WATER STERILE FOR INJ 850 ML IV SCH ×2 (06:40→15:45)
[2017-05-27] MEDS ORDERED: MAGNESIUM SULFATE INJ 4 GM in SODIUM CHLORIDE 0.9% INJ 92 ML IV PRN (08:00)
[2017-05-27] MEDS ORDERED: POTASSIUM CHLOR 40 MEQ PREMIX 100 ML IV PRN (08:00)
[2017-05-27] MEDS ORDERED: POTASSIUM PHOSPHATE MONOBASIC 500 MG TAB PO/TUBE PRN (08:00)
[2017-05-27] MEDS ORDERED: POTASSIUM PHOSPHATE MONOBASIC 500 MG TAB PO PRN (08:00)
[2017-05-27] MEDS ORDERED: MAGNESIUM OXIDE 400 MG TAB PO PRN (08:00)
[2017-05-27] MEDS ORDERED: POTASSIUM CHLORIDE 25 MEQ EFFERVESCENT TAB PO PRN (08:00)
[2017-05-27] MEDS ORDERED: SODIUM PHOSPHATE INJ 30 MMOL in SODIUM CHLOR 0.9% 250 ML INJ 240 ML IV PRN (08:00)
[2017-05-27] MEDS ORDERED: POTASSIUM CHLOR 20 MEQ PREMIX 100 ML IV PRN ×2 (08:00)
[2017-05-27] MEDS ORDERED: MAGNESIUM SULFATE INJ 2 GM in SODIUM CHLORIDE 0.9% INJ 96 ML IV PRN (08:00)
[2017-05-27] MEDS: CHLORHEXIDINE 0.12% (ORAL KIT) 15 ML CUP MT SCH ×2 (08:00→19:55)
[2017-05-27] MEDS: MIDAZOLAM 100 MG/NS 100 ML DRIP Premix IV PRN ×2 (08:15→18:57)
[2017-05-27] MEDS: levETIRAcetam INJ 500 MG in SODIUM CHLORIDE 0.9% INJ 100 ML IV SCH ×2 (08:17→19:55)
[2017-05-27] MEDS: SODIUM CHLORIDE 0.9% FLUSH 10 ML FLUSH IV FLUSH SCH (08:17)
[2017-05-27] MEDS: ARTIFICIAL TEARS OPTH OINT 3.5 APPLIC/3.5 GM TUBO EACH EYE SCH ×2 (08:17→21:00)
[2017-05-27] MEDS: BACITRACIN TOP OINT 15 GM TUBE TOPICAL SCH (08:18)
[2017-05-27] MEDS: FAMOTIDINE 20 MG/2 ML VIAL IV PUSH SCH ×2 (08:18→21:00)
[2017-05-27] MEDS: DOCUSATE SODIUM 50 MG/SENNA 8.6 MG TAB PO SCH ×2 (08:18→21:00)
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
[2017-05-27] MEDS ORDERED: CISATRACURIUM BESYLATE 20 MG/10 ML VIAL IV PUSH ONE (09:30)
[2017-05-27] MEDS ORDERED: ROCURONIUM INJ 50 MG/5 ML VIAL IV ONE (09:30)
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
[2017-05-27] MEDS: VANCOMYCIN INJ 1,500 MG in SODIUM CHLORID 0.9% 500 ML INJ 500 ML IV SCH ×2 (10:00→23:41)
[2017-05-27] MEDS ORDERED: CALCIUM GLUCONATE INJ 1 GM in SODIUM CHLORIDE 0.9% INJ 100 ML IV ONE (10:00)
[2017-05-27] MEDS: VASOPRESSIN INJ 40 UNITS in DEXTROSE 5% IN WATER 100ML INJ 98 ML IV SCH ×2 (10:51)
[2017-05-27 11:04] LABS: BANDS 49 % (0-6); CORRECTED NUCLEATED RBC 7 /100 WBC (0-0); LYMPHOCYTES 24 % (9-44); METAMYELOCYTES 3 % (0-1); MONOCYTES 9 % (0-8); NEUTROPHIL # MANUAL DIFF 0.8 TH/MM3 (1.8-7.7); NUCLEATED RED BLOOD CELL 7 (0-0); POLYS (SEG NEUTROPHILS) 12 % (16-70)
[2017-05-27] MEDS: HYDROCORTISONE SOD SUCCINATE 100 MG VIAL IV PUSH SCH ×3 (13:00→23:43)
[2017-05-27] MEDS ORDERED: GENTAMICIN INJ 400 MG in SODIUM CHLORIDE 0.9% INJ 100 ML IV ONE (15:00)
[2017-05-27 15:17] LABS: BICARBONATE 28.2 MEQ/L (21.0-32.0); CREATININE 0.91 MG/DL (0.60-1.30)
[2017-05-27 15:34] LABS: CALCIUM-PROTEIN CORRECTED 8.4 MG/DL (8.5-10.1); TOTAL PROTEIN 4.6 GM/DL (6.4-8.2)
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
[2017-05-27] MEDS ORDERED: DEXTROSE 50% IN WATER 50 ML SYRINGE ONE (18:02)
[2017-05-27] MEDS ORDERED: SODIUM CHLORIDE 23.4% INJ 154 MEQ in DEXTROSE 10% INJ 1,000 ML IV SCH ×2 (18:15→18:30)
[2017-05-27] MEDS ORDERED: ACETAMINOPHEN 1000 MG/100 ML 100 ML IV ONE (18:15)
[2017-05-27] MEDS ORDERED: DEXTROSE 50% IN WATER 50 ML SYRINGE IV PUSH ONE ×2 (18:30→18:55)
[2017-05-27] MEDS ORDERED: DEXTROSE 50% IN WATER 50 ML SYRINGE IV PUSH PRN (18:30)
[2017-05-27] MEDS: RESP: SODIUM CHLORIDE 3% 4 ML NEB NEB SCH (20:25)
[2017-05-27] MEDS: fentaNYL DRIP 250 ML IV PRN (20:56)
[2017-05-27] MEDS: CISATRACURIUM INJ 100 MG in SODIUM CHLOR 0.9% 250 ML INJ 250 ML IV PRN (20:57)
[2017-05-28] VITALS (14 sets, daily range): BP systolic 96–118; BP diastolic 57–70; PULSE 96–113; RESP 22–26; TEMP 98.5–100.7; O2SAT 87–100
[2017-05-28] MEDS: DEXTROSE 10%-NS 1000 ML IV SCH ×6 (00:21→09:37)
[2017-05-28] MEDS: PIPERACIL-TAZO 3.375 GM PREMIX 50 ML IV SCH ×2 (02:13→08:56)
[2017-05-28] MEDS: NOREPINEPHRINE INJ 8 MG in SODIUM CHLORID 0.9% 500 ML INJ 492 ML IV PRN ×2 (02:24→18:11)
[2017-05-28] MEDS: EPINEPHrine (1:1000) INJ 2 MG in SODIUM CHLOR 0.9% 250 ML INJ 250 ML IV PRN (02:24)
[2017-05-28] MEDS: CHLORHEXIDINE GLUCONATE 2 % 1 PACK (2 CLOTHS) TOP SCH ×2 (02:53→20:46)
[2017-05-28] MEDS: CISATRACURIUM INJ 100 MG in SODIUM CHLOR 0.9% 250 ML INJ 250 ML IV PRN ×4 (04:09→20:14)
[2017-05-28] MEDS: RESP: ALBUTEROL 2.5 MG/IPRATROPIUM 0.5 MG NEB (SCH) NEB ×6 (04:45→23:44)
[2017-05-28] MEDS: MIDAZOLAM 100 MG/NS 100 ML DRIP Premix IV PRN ×2 (05:28→14:59)
[2017-05-28] MEDS: INSULIN ASPART SUPPLEMENTAL SCALE SQ SCH ×4 (05:28→20:00)
[2017-05-28] MEDS: EPOPROSTENOL NEB SOLUTION 50 NG/KG/MIN 100 ML NEB SCH ×4 (05:28→17:27)
[2017-05-28 05:33] LABS: AUTOMATED NEUTROPHIL # 11.6 TH/MM3 (1.8-7.7); EOSINOPHIL % 0.3 % (0.0-4.0); HEMATOCRIT 24.4 % (39.0-51.0); HEMOGLOBIN 8.2 GM/DL (13.0-17.0); LYMPH % 2.8 % (9.0-44.0); LYMPHOCYTE # 0.3 TH/MM3 (1.0-4.8); MEAN CELL VOLUME 92.9 FL (80.0-100.0); MEAN CORPUSCULAR HEMOGLOBIN 31.4 PG (27.0-34.0); MEAN CORPUSCULAR HGB CONC 33.8 % (32.0-36.0); MEAN PLATELET VOLUME 8.8 FL (7.0-11.0); MONO % 1.2 % (0.0-8.0); MONOCYTE # 0.1 TH/MM3 (0-0.9); NEUT % 95.7 % (16.0-70.0); PLATELET COUNT 78 TH/MM3 (150-450); RED BLOOD COUNT 2.63 MIL/MM3 (4.50-5.90); RED CELL DISTRIBUTION WIDTH 15.7 % (11.6-17.2); WHITE BLOOD COUNT 12.2 TH/MM3 (4.0-11.0)
[2017-05-28] MEDS: HYDROCORTISONE SOD SUCCINATE 100 MG VIAL IV PUSH SCH ×3 (05:47→17:06)
[2017-05-28 05:56] LABS: ALBUMIN 1.4 GM/DL (3.4-5.0); BICARBONATE 27.1 MEQ/L (21.0-32.0); CALCIUM 6.8 MG/DL (8.5-10.1); CALCIUM-PROTEIN CORRECTED 8.1 MG/DL (8.5-10.1); CREATININE 1.07 MG/DL (0.60-1.30); MAGNESIUM 2.2 MG/DL (1.5-2.5); PHOSPHORUS 2.9 MG/DL (2.5-4.9); TOTAL BILIRUBIN ADULT 0.9 MG/DL (0.2-1.0); TOTAL PROTEIN 4.7 GM/DL (6.4-8.2)
--- NOTE | 2017-05-28 07:01 | RADRPT ---
EXAM DATE/TIME: 05/28/2017 04:35 [place] COMPARISON: CHEST SINGLE AP, May 27, 2017, 1:56. INDICATIONS : Shortness of breath. MEDICAL HISTORY : None. SURGICAL HISTORY : None. ENCOUNTER: Subsequent ACUITY: 1 week PAIN SCORE: Non-responsive. LOCATION: Bilateral chest FINDINGS: A single AP supine portable view of the chest was obtained and again demonstrates endotracheal tube i n place with the tip approximately 5 cm above the clarisse. Nasogastric tube is seen coursing through t he esophagus into the stomach. The right internal jugular central venous line remains in place. The p reviously noted Dobbhoff feeding catheter has been removed. Air space opacities again noted in both l ungs greatest at the lung bases with air bronchograms. The left costophrenic angle is cut off the exa m. The heart size appears mildly enlarged. CONCLUSION: 1. Interval removal of Dobbhoff feeding tube. 2. Mild interval increase in airspace opacities greatest at the lung bases. Servando Mccabe MD on May 28, 2017 at 6:59 Board Certified Radiologist. This report was verified electronically.
[2017-05-28 07:58] LABS: BANDS 33 % (0-6); CORRECTED NUCLEATED RBC 4 /100 WBC (0-0); LYMPHOCYTES 3 % (9-44); METAMYELOCYTES 19 % (0-1); MONOCYTES 6 % (0-8); NEUTROPHIL # MANUAL DIFF 11.1 TH/MM3 (1.8-7.7); NUCLEATED RED BLOOD CELL 4 (0-0); POLYS (SEG NEUTROPHILS) 39 % (16-70)
[2017-05-28 07:59] LABS: DOHLE BODIES PRESENT (NONE SEEN); TOXIC GRANULATION 1+ (NORMAL)
[2017-05-28] MEDS: CHLORHEXIDINE 0.12% (ORAL KIT) 15 ML CUP MT SCH ×2 (08:00→20:21)
[2017-05-28] MEDS: RESP: SODIUM CHLORIDE 3% 4 ML NEB NEB SCH ×2 (08:00→19:31)
[2017-05-28] MEDS: BACITRACIN TOP OINT 15 GM TUBE TOPICAL SCH (08:57)
[2017-05-28] MEDS: FAMOTIDINE 20 MG/2 ML VIAL IV PUSH SCH ×2 (08:57→21:07)
[2017-05-28] MEDS: SODIUM CHLORIDE 0.9% FLUSH 10 ML FLUSH IV FLUSH SCH (08:57)
[2017-05-28] MEDS: ARTIFICIAL TEARS OPTH OINT 3.5 APPLIC/3.5 GM TUBO EACH EYE SCH ×2 (08:57→21:07)
[2017-05-28] MEDS: DOCUSATE SODIUM 50 MG/SENNA 8.6 MG TAB PO SCH ×2 (08:57→20:44)
[2017-05-28] MEDS: levETIRAcetam INJ 500 MG in SODIUM CHLORIDE 0.9% INJ 100 ML IV SCH ×3 (09:00→21:24)
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
[2017-05-28] MEDS ORDERED: Tobramycin Consult Pharmacy 1 EA OTHER SCH (09:30)
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
[2017-05-28] MEDS: CIPROFLOXACIN 400 MG PREMIX 200 ML IV SCH ×2 (09:37→21:51)
[2017-05-28] MEDS ORDERED: PHARMACY ORDERED LAB ONE (09:45)
[2017-05-28] MEDS: SODIUM BICARBONATE 8.4% INJ 150 MEQ in WATER STERILE FOR INJ 850 ML IV SCH (09:59)
[2017-05-28] MEDS: VASOPRESSIN INJ 40 UNITS in DEXTROSE 5% IN WATER 100ML INJ 98 ML IV SCH ×2 (09:59)
[2017-05-28] MEDS: CEFEPIME INJ 2,000 MG in SODIUM CHLORIDE 0.9% INJ 100 ML IV SCH ×2 (11:13→17:06)
[2017-05-28] MEDS: SODIUM CHLORIDE 0.9% IV SCH ×2 (12:00→20:21)
[2017-05-28] MEDS: TOBRAMYCIN IV SCH ×2 (12:00→20:21)
[2017-05-28] MEDS: fentaNYL DRIP 250 ML IV PRN (13:51)
[2017-05-28] MEDS ORDERED: RASS Change Order XX ONE (14:00)
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
[2017-05-28] MEDS: ENOXAPARIN SODIUM 40 MG/0.4 ML SYRINGE SQ SCH (16:35)
[2017-05-28] MEDS ORDERED: CALCIUM GLUCONATE INJ 1 GM in SODIUM CHLORIDE 0.9% INJ 100 ML IV ONE (18:00)
[2017-05-29] VITALS (18 sets, daily range): BP systolic 95–135; BP diastolic 60–77; PULSE 95–120; RESP 26–34; TEMP 98.3–99.9; O2SAT 86–100
[2017-05-29] MEDS: HYDROCORTISONE SOD SUCCINATE 100 MG VIAL IV PUSH SCH ×4 (00:15→16:35)
[2017-05-29] MEDS: MIDAZOLAM 100 MG/NS 100 ML DRIP Premix IV PRN ×3 (00:59→23:19)
[2017-05-29] MEDS: CEFEPIME INJ 2,000 MG in SODIUM CHLORIDE 0.9% INJ 100 ML IV SCH ×3 (01:01→17:03)
[2017-05-29] MEDS: CISATRACURIUM INJ 100 MG in SODIUM CHLOR 0.9% 250 ML INJ 250 ML IV PRN ×4 (01:24→18:58)
[2017-05-29] MEDS: SODIUM BICARBONATE 8.4% INJ 150 MEQ in WATER STERILE FOR INJ 850 ML IV SCH ×2 (02:35→19:00)
[2017-05-29] MEDS: INSULIN ASPART SUPPLEMENTAL SCALE SQ SCH ×6 (04:00→20:00)
[2017-05-29] MEDS: RESP: ALBUTEROL 2.5 MG/IPRATROPIUM 0.5 MG NEB (SCH) NEB ×5 (04:37→20:00)
[2017-05-29] MEDS: SODIUM CHLORIDE 0.9% IV SCH ×3 (04:40→21:00)
[2017-05-29] MEDS: EPOPROSTENOL NEB SOLUTION 50 NG/KG/MIN 100 ML NEB SCH ×6 (04:40→15:02)
[2017-05-29] MEDS: TOBRAMYCIN IV SCH ×3 (04:40→21:00)
[2017-05-29 04:57] LABS: HEMATOCRIT 24.5 % (39.0-51.0); HEMOGLOBIN 8.3 GM/DL (13.0-17.0); MEAN CELL VOLUME 92.7 FL (80.0-100.0); MEAN CORPUSCULAR HEMOGLOBIN 31.3 PG (27.0-34.0); MEAN CORPUSCULAR HGB CONC 33.7 % (32.0-36.0); MEAN PLATELET VOLUME 8.6 FL (7.0-11.0); PLATELET COUNT 50 TH/MM3 (150-450); RED BLOOD COUNT 2.65 MIL/MM3 (4.50-5.90); RED CELL DISTRIBUTION WIDTH 15.6 % (11.6-17.2); WHITE BLOOD COUNT 16.1 TH/MM3 (4.0-11.0)
[2017-05-29 05:10] LABS: ALBUMIN 1.3 GM/DL (3.4-5.0); AST (GOT) 46 U/L (15-37); BICARBONATE 28.8 MEQ/L (21.0-32.0); CALCIUM 7.6 MG/DL (8.5-10.1); CHLORIDE 120 MEQ/L (98-107); CREATININE 0.84 MG/DL (0.60-1.30); GLOMERULAR FILTRATION RATE 94 ML/MIN (>89); GLUCOSE,RANDOM 113 MG/DL (74-106); MAGNESIUM 2.4 MG/DL (1.5-2.5); SODIUM (NA) 155 MEQ/L (136-145)
[2017-05-29 05:20] LABS: ALKALINE PHOSPHATASE 53 U/L (45-117); ALT (GPT) 33 U/L (12-78); BLOOD UREA NITROGEN 25 MG/DL (7-18); PHOSPHORUS 1.6 MG/DL (2.5-4.9); TOTAL BILIRUBIN ADULT 0.8 MG/DL (0.2-1.0); TOTAL PROTEIN 4.9 GM/DL (6.4-8.2)
[2017-05-29] MEDS: fentaNYL DRIP 250 ML IV PRN ×2 (05:37→21:16)
[2017-05-29] MEDS: POTASSIUM PHOSPHATE INJ 30 MMOL in SODIUM CHLOR 0.9% 250 ML INJ 250 ML IV PRN (07:03)
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
[2017-05-29] MEDS ORDERED: POTASSIUM PHOSPHATE INJ 30 MMOL in SODIUM CHLOR 0.9% 250 ML INJ 250 ML IV ONE (07:15)
[2017-05-29] MEDS: CHLORHEXIDINE 0.12% (ORAL KIT) 15 ML CUP MT SCH ×2 (08:00→20:00)
[2017-05-29] MEDS ORDERED: CALCIUM GLUCONATE INJ 1 GM in DEXTROSE 5% IN WATER 100ML INJ 100 ML IV ONE ×2 (08:00)
[2017-05-29] MEDS: ARTIFICIAL TEARS OPTH OINT 3.5 APPLIC/3.5 GM TUBO EACH EYE SCH ×2 (08:07→21:06)
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
[2017-05-29] MEDS: RESP: SODIUM CHLORIDE 3% 4 ML NEB NEB SCH ×2 (08:18→20:00)
[2017-05-29 08:19] LABS: BANDS 42 % (0-6); MONOCYTES 3 % (0-8); NEUTROPHIL # MANUAL DIFF 15.6 TH/MM3 (1.8-7.7); POLYS (SEG NEUTROPHILS) 55 % (16-70)
[2017-05-29 08:20] LABS: DOHLE BODIES PRESENT (NONE SEEN); TOXIC GRANULATION 1+ (NORMAL)
[2017-05-29] MEDS: SODIUM CHLORIDE 0.9% FLUSH 10 ML FLUSH IV FLUSH SCH (09:00)
[2017-05-29] MEDS: DOCUSATE SODIUM 50 MG/SENNA 8.6 MG TAB PO SCH ×2 (09:00→19:59)
[2017-05-29] MEDS: levETIRAcetam INJ 500 MG in SODIUM CHLORIDE 0.9% INJ 100 ML IV SCH ×2 (09:45→20:00)
[2017-05-29] MEDS: VASOPRESSIN INJ 40 UNITS in DEXTROSE 5% IN WATER 100ML INJ 98 ML IV SCH ×2 (09:59)
[2017-05-29] MEDS: CIPROFLOXACIN 400 MG PREMIX 200 ML IV SCH ×2 (10:16→21:00)
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
[2017-05-29] MEDS: BISACODYL 10 MG SUPP RECTAL SCH (10:17)
[2017-05-29] MEDS: FAMOTIDINE 20 MG/2 ML VIAL IV PUSH SCH ×2 (10:17→20:00)
[2017-05-29] MEDS: BACITRACIN TOP OINT 15 GM TUBE TOPICAL SCH (10:17)
[2017-05-29 12:30] LABS: INTERNATIONAL NORMALIZED RATIO 1.1 RATIO; PROTHROMBIN TIME - PATIENT 11.3 SEC (9.8-11.6)
[2017-05-29] MEDS ORDERED: FUROSEMIDE 40 MG/4 ML VIAL IV PUSH ONE (13:00)
[2017-05-29] MEDS: ENOXAPARIN SODIUM 40 MG/0.4 ML SYRINGE SQ SCH (14:12)
[2017-05-29 17:17] LABS: BICARBONATE 34.1 MEQ/L (21.0-32.0); CALCIUM 7.8 MG/DL (8.5-10.1); CREATININE 1.04 MG/DL (0.60-1.30); MAGNESIUM 2.3 MG/DL (1.5-2.5); PHOSPHORUS 3.5 MG/DL (2.5-4.9)
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
[2017-05-30] VITALS (16 sets, daily range): BP systolic 93–128; BP diastolic 55–77; PULSE 90–105; RESP 32–34; TEMP 98.1–99.5; O2SAT 93–100
[2017-05-30] MEDS: RESP: ALBUTEROL 2.5 MG/IPRATROPIUM 0.5 MG NEB (SCH) NEB ×6 (01:30→19:14)
[2017-05-30] MEDS ORDERED: PHARMACY ORDERED LAB ONE ×2 (03:45→05:30)
[2017-05-30] MEDS: CEFEPIME INJ 2,000 MG in SODIUM CHLORIDE 0.9% INJ 100 ML IV SCH ×3 (03:49→17:44)
[2017-05-30] MEDS: CISATRACURIUM INJ 100 MG in SODIUM CHLOR 0.9% 250 ML INJ 250 ML IV PRN ×2 (03:51→11:31)
[2017-05-30] MEDS: INSULIN ASPART SUPPLEMENTAL SCALE SQ SCH ×6 (04:00→19:48)
[2017-05-30] MEDS: CHLORHEXIDINE GLUCONATE 2 % 1 PACK (2 CLOTHS) TOP SCH ×2 (04:00→19:34)
[2017-05-30 04:42] LABS: MEAN CELL VOLUME 93.4 FL (80.0-100.0); MEAN CORPUSCULAR HEMOGLOBIN 31.6 PG (27.0-34.0); MEAN CORPUSCULAR HGB CONC 33.9 % (32.0-36.0); MEAN PLATELET VOLUME 8.5 FL (7.0-11.0); PLATELET COUNT 68 TH/MM3 (150-450); RED CELL DISTRIBUTION WIDTH 15.6 % (11.6-17.2); WHITE BLOOD COUNT 11.6 TH/MM3 (4.0-11.0)
[2017-05-30 04:56] LABS: HEMATOCRIT 20.5 % (39.0-51.0)
[2017-05-30 05:05] LABS: ALBUMIN 1.2 GM/DL (3.4-5.0); ALKALINE PHOSPHATASE 72 U/L (45-117); ALT (GPT) 26 U/L (12-78); AST (GOT) 31 U/L (15-37); BICARBONATE 33.1 MEQ/L (21.0-32.0); BLOOD UREA NITROGEN 34 MG/DL (7-18); CALCIUM 7.7 MG/DL (8.5-10.1); CHLORIDE 120 MEQ/L (98-107); GLOMERULAR FILTRATION RATE 87 ML/MIN (>89); GLUCOSE,RANDOM 106 MG/DL (74-106); MAGNESIUM 2.5 MG/DL (1.5-2.5); PHOSPHORUS 2.1 MG/DL (2.5-4.9); TOTAL BILIRUBIN ADULT 0.5 MG/DL (0.2-1.0); TOTAL PROTEIN 4.5 GM/DL (6.4-8.2)
[2017-05-30 05:09] LABS: SODIUM (NA) 157 MEQ/L (136-145)
[2017-05-30] MEDS: SODIUM CHLORIDE 0.9% IV SCH ×2 (06:00→11:44)
[2017-05-30] MEDS: EPOPROSTENOL NEB SOLUTION 50 NG/KG/MIN 100 ML NEB SCH ×4 (06:00→16:58)
[2017-05-30] MEDS: TOBRAMYCIN IV SCH ×2 (06:00→11:44)
--- NOTE | 2017-05-30 06:11 | RADRPT ---
EXAM DATE/TIME: 05/30/2017 04:46 [place] COMPARISON: CHEST SINGLE AP, May 28, 2017, 4:35. INDICATIONS : Respiratory distress MEDICAL HISTORY : None. SURGICAL HISTORY : None. ENCOUNTER: Subsequent ACUITY: 1 week PAIN SCORE: Non-responsive. LOCATION: Bilateral chest FINDINGS: Diffuse bilateral air space opacities are present, severe on the right and moderate on the left. Both sides appear worse in the interim. A left chest tube is now present. No pneumothorax seen. Endotracheal tube tip is approximately 5 cm above the clarisse. Nasogastric tube courses into the stoma ch. There is a right internal jugular central venous catheter with tip in the superior vena cava. CONCLUSION: Worsening bilateral airspace disease. Chest tube. No pneumothorax seen. Tyrel Nuñez MD on May 30, 2017 at 6:08 Board Certified Radiologist. This report was verified electronically.
[2017-05-30 07:10] LABS: BANDS 26 % (0-6); LYMPHOCYTES 3 % (9-44); MONOCYTES 4 % (0-8); NEUTROPHIL # MANUAL DIFF 10.8 TH/MM3 (1.8-7.7); POLYS (SEG NEUTROPHILS) 67 % (16-70)
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
[2017-05-30] MEDS: CHLORHEXIDINE 0.12% (ORAL KIT) 15 ML CUP MT SCH ×2 (08:00→19:48)
[2017-05-30] MEDS ORDERED: FUROSEMIDE 40 MG/4 ML VIAL IV PUSH ONE (08:00)
[2017-05-30] MEDS: RESP: SODIUM CHLORIDE 3% 4 ML NEB NEB SCH ×2 (08:06→19:14)
[2017-05-30] MEDS: MIDAZOLAM 100 MG/NS 100 ML DRIP Premix IV PRN (08:07)
[2017-05-30] MEDS: levETIRAcetam INJ 500 MG in SODIUM CHLORIDE 0.9% INJ 100 ML IV SCH ×2 (08:08→21:21)
[2017-05-30] MEDS: FAMOTIDINE 20 MG/2 ML VIAL IV PUSH SCH ×2 (08:08→21:20)
[2017-05-30] MEDS: BACITRACIN TOP OINT 15 GM TUBE TOPICAL SCH (08:09)
[2017-05-30] MEDS: BISACODYL 10 MG SUPP RECTAL SCH (08:09)
[2017-05-30] MEDS: ARTIFICIAL TEARS OPTH OINT 3.5 APPLIC/3.5 GM TUBO EACH EYE SCH ×2 (08:09→21:21)
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
[2017-05-30] MEDS: DOCUSATE SODIUM 50 MG/SENNA 8.6 MG TAB PO SCH ×2 (09:00→21:22)
[2017-05-30] MEDS: SODIUM CHLORIDE 0.9% FLUSH 10 ML FLUSH IV FLUSH SCH (09:00)
[2017-05-30] MEDS: POTASSIUM PHOSPHATE INJ 30 MMOL in SODIUM CHLOR 0.9% 250 ML INJ 250 ML IV PRN (09:09)
[2017-05-30] MEDS: CIPROFLOXACIN 400 MG PREMIX 200 ML IV SCH (09:09)
[2017-05-30] MEDS: VASOPRESSIN INJ 40 UNITS in DEXTROSE 5% IN WATER 100ML INJ 98 ML IV SCH ×2 (09:59)
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
[2017-05-30 13:43] LABS: HEMATOCRIT 21.8 % (39.0-51.0); HEMOGLOBIN 7.5 GM/DL (13.0-17.0); MEAN CELL VOLUME 93.1 FL (80.0-100.0); MEAN CORPUSCULAR HEMOGLOBIN 32.3 PG (27.0-34.0); MEAN CORPUSCULAR HGB CONC 34.7 % (32.0-36.0); PLATELET COUNT 58 TH/MM3 (150-450); RED BLOOD COUNT 2.34 MIL/MM3 (4.50-5.90); RED CELL DISTRIBUTION WIDTH 15.2 % (11.6-17.2)
[2017-05-30] MEDS: ENOXAPARIN SODIUM 40 MG/0.4 ML SYRINGE SQ SCH (13:43)
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
[2017-05-30] MEDS: fentaNYL DRIP 250 ML IV PRN (15:02)
[2017-05-30 15:35] LABS: CALCIUM 7.7 MG/DL (8.5-10.1); CREATININE 0.86 MG/DL (0.60-1.30); MAGNESIUM 2.4 MG/DL (1.5-2.5)
[2017-05-30] MEDS: DEXTROSE 5% IN WATE 1000ML INJ 1,000 ML IV SCH (15:37)
[2017-05-30] MEDS ORDERED: DEXTROSE 5% IV PRN ×6 (16:00→18:00)
[2017-05-30] MEDS ORDERED: RASS Change Order XX ONE (16:00)
[2017-05-30] MEDS ORDERED: WATER IV PRN ×6 (16:00→18:00)
[2017-05-30] MEDS ORDERED: MIDAZOLAM IV PRN ×6 (16:00→18:00)
[2017-05-30] MEDS: DEXTROSE 5% IV PRN ×2 (16:13)
[2017-05-30] MEDS: WATER IV PRN ×2 (16:13)
[2017-05-30] MEDS: CISATRACURIUM IV PRN ×2 (16:13)
[2017-05-30] MEDS ORDERED: FUROSEMIDE 40 MG/4 ML VIAL IV PUSH SCH (18:00)
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
[2017-05-30] MEDS ORDERED: NOREPINEPHRINE-DEXTROSE DRIP 250 ML IV ONE (21:15)
[2017-05-31] VITALS (17 sets, daily range): BP systolic 103–120; BP diastolic 55–65; PULSE 90–98; RESP 32–34; TEMP 98–100.3; O2SAT 91–100
[2017-05-31] MEDS ORDERED: TOBRAMYCIN INJ 200 MG in SODIUM CHLORIDE 0.9% INJ 100 ML IV SCH ×2
[2017-05-31] MEDS: RESP: ALBUTEROL 2.5 MG/IPRATROPIUM 0.5 MG NEB (SCH) NEB ×5 (00:05→15:07)
[2017-05-31] MEDS: CEFEPIME INJ 2,000 MG in SODIUM CHLORIDE 0.9% INJ 100 ML IV SCH ×2 (01:35→10:05)
[2017-05-31] MEDS: INSULIN ASPART SUPPLEMENTAL SCALE SQ SCH ×6 (04:00→20:00)
[2017-05-31] MEDS: MIDAZOLAM IV PRN ×4 (04:16→14:54)
[2017-05-31] MEDS: DEXTROSE 5% IV PRN ×10 (04:16→23:59)
[2017-05-31] MEDS: WATER IV PRN ×10 (04:16→23:59)
[2017-05-31] MEDS: CISATRACURIUM IV PRN ×6 (04:27→23:59)
[2017-05-31 06:05] LABS: AUTOMATED NEUTROPHIL # 10.7 TH/MM3 (1.8-7.7); BASOPHIL % 0.1 % (0.0-2.0); EOSINOPHIL % 0.2 % (0.0-4.0); HEMATOCRIT 22.4 % (39.0-51.0); HEMOGLOBIN 7.5 GM/DL (13.0-17.0); LYMPH % 4.6 % (9.0-44.0); LYMPHOCYTE # 0.5 TH/MM3 (1.0-4.8); MEAN CELL VOLUME 94.2 FL (80.0-100.0); MEAN CORPUSCULAR HEMOGLOBIN 31.4 PG (27.0-34.0); MEAN CORPUSCULAR HGB CONC 33.4 % (32.0-36.0); MEAN PLATELET VOLUME 9.4 FL (7.0-11.0); MONO % 3.6 % (0.0-8.0); MONOCYTE # 0.4 TH/MM3 (0-0.9); NEUT % 91.5 % (16.0-70.0); PLATELET COUNT 90 TH/MM3 (150-450); RED BLOOD COUNT 2.37 MIL/MM3 (4.50-5.90); RED CELL DISTRIBUTION WIDTH 15.2 % (11.6-17.2); WHITE BLOOD COUNT 11.7 TH/MM3 (4.0-11.0)
--- NOTE | 2017-05-31 06:21 | RADRPT ---
EXAM DATE/TIME: 05/31/2017 05:00 [facility] COMPARISON: CHEST SINGLE AP, May 30, 2017, 4:46. INDICATIONS : Bilateral airspace disease MEDICAL HISTORY : None. SURGICAL HISTORY : Chest tube. ENCOUNTER: Subsequent ACUITY: 1 week PAIN SCORE: Non-responsive. LOCATION: Bilateral chest FINDINGS: Right greater than left diffuse airspace opacities persist and not significantly changed. I don't see a large effusion. No pneumothorax. Endotracheal tube tip is approximately 4.5 cm above the clarisse. Nasogastric tube has tip in the stoma ch. There is a right internal jugular central venous catheter with tip in the superior vena cava. Lef t chest tube remains in place. CONCLUSION: No significant change. Tyrel Nuñez MD on May 31, 2017 at 6:19 Board Certified Radiologist. This report was verified electronically.
[2017-05-31] MEDS: EPOPROSTENOL NEB SOLUTION 50 NG/KG/MIN 100 ML NEB SCH ×6 (06:26→20:02)
[2017-05-31 07:01] LABS: ALBUMIN 1.5 GM/DL (3.4-5.0); ALKALINE PHOSPHATASE 72 U/L (45-117); ALT (GPT) 29 U/L (12-78); AST (GOT) 26 U/L (15-37); BICARBONATE 36.2 MEQ/L (21.0-32.0); BLOOD UREA NITROGEN 39 MG/DL (7-18); CALCIUM 8.1 MG/DL (8.5-10.1); CHLORIDE 121 MEQ/L (98-107); CREATININE 0.98 MG/DL (0.60-1.30); GLOMERULAR FILTRATION RATE 79 ML/MIN (>89); GLUCOSE,RANDOM 122 MG/DL (74-106); MAGNESIUM 2.4 MG/DL (1.5-2.5); PHOSPHORUS 3.1 MG/DL (2.5-4.9); TOTAL BILIRUBIN ADULT 0.4 MG/DL (0.2-1.0)
[2017-05-31 07:42] LABS: SODIUM (NA) 160 MEQ/L (136-145)
[2017-05-31] MEDS: CHLORHEXIDINE 0.12% (ORAL KIT) 15 ML CUP MT SCH ×2 (08:00→19:58)
[2017-05-31 08:03] LABS: BANDS 12 % (0-6); LYMPHOCYTES 1 % (9-44); MONOCYTES 4 % (0-8); NEUTROPHIL # MANUAL DIFF 10.9 TH/MM3 (1.8-7.7); POLYS (SEG NEUTROPHILS) 81 % (16-70)
[2017-05-31] MEDS: FAMOTIDINE 20 MG/2 ML VIAL IV PUSH SCH ×2 (08:10→20:03)
[2017-05-31] MEDS: levETIRAcetam INJ 500 MG in SODIUM CHLORIDE 0.9% INJ 100 ML IV SCH ×2 (08:10→20:02)
[2017-05-31] MEDS: DOCUSATE SODIUM 50 MG/SENNA 8.6 MG TAB PO SCH ×2 (08:49→20:02)
[2017-05-31] MEDS: fentaNYL DRIP 250 ML IV PRN (08:50)
[2017-05-31] MEDS: RESP: SODIUM CHLORIDE 3% 4 ML NEB NEB SCH ×2 (08:53→19:57)
[2017-05-31] MEDS: ARTIFICIAL TEARS OPTH OINT 3.5 APPLIC/3.5 GM TUBO EACH EYE SCH ×2 (09:00→19:59)
[2017-05-31] MEDS: SODIUM CHLORIDE 0.9% FLUSH 10 ML FLUSH IV FLUSH SCH (09:00)
[2017-05-31] MEDS: BACITRACIN TOP OINT 15 GM TUBE TOPICAL SCH (09:00)
[2017-05-31] MEDS: BISACODYL 10 MG SUPP RECTAL SCH (09:00)
[2017-05-31] MEDS ORDERED: LIDOCAINE HCL 1% 50 ML VIAL INFIL ONE (11:00)
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
[2017-05-31] MEDS ORDERED: ASP: Other exception documentation: ( ) PRN (12:30)
[2017-05-31] MEDS ORDERED: Tobramycin Consult Pharmacy 1 EA OTHER SCH (12:30)
[2017-05-31] MEDS ORDERED: MISCELLANEOUS PHARMACY INFORMATION XX PRN (12:30)
[2017-05-31] MEDS ORDERED: ASP: ID consult, note reason in consult order PRN (12:30)
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
[2017-05-31] MEDS: MEROPENEM INJ 1,000 MG in SODIUM CHLORIDE 0.9% INJ 100 ML IV SCH ×2 (13:41→21:51)
[2017-05-31] MEDS: ENOXAPARIN SODIUM 40 MG/0.4 ML SYRINGE SQ SCH (13:42)
[2017-05-31] MEDS: TOBRAMYCIN INJ 200 MG in SODIUM CHLORIDE 0.9% INJ 100 ML IV SCH (17:48)
[2017-05-31 18:18] LABS: HEMATOCRIT 21.3 % (39.0-51.0); HEMOGLOBIN 7.2 GM/DL (13.0-17.0)
[2017-05-31] MEDS: RESP: ALBUTEROL 2.5 MG/3 ML NEB (PRN) NEB (19:58)
[2017-05-31] MEDS: DEXTROSE 5% IN WATE 1000ML INJ 1,000 ML IV SCH (19:58)
[2017-05-31] MEDS: VASOPRESSIN INJ 40 UNITS in DEXTROSE 5% IN WATER 100ML INJ 98 ML IV SCH ×2 (20:02)
[2017-06-01] VITALS (18 sets, daily range): BP systolic 103–120; BP diastolic 56–68; PULSE 87–96; RESP 32; TEMP 99–100.1; O2SAT 91–100
[2017-06-01] MEDS: fentaNYL DRIP 250 ML IV PRN ×2 (02:00→18:13)
[2017-06-01] MEDS: MIDAZOLAM IV PRN ×6 (02:56→18:40)
[2017-06-01] MEDS: DEXTROSE 5% IV PRN ×6 (02:56→18:40)
[2017-06-01] MEDS: WATER IV PRN ×6 (02:56→18:40)
[2017-06-01] MEDS: CHLORHEXIDINE GLUCONATE 2 % 1 PACK (2 CLOTHS) TOP SCH (02:57)
[2017-06-01] MEDS: RESP: ALBUTEROL 2.5 MG/3 ML NEB (PRN) NEB ×3 (03:51→20:24)
[2017-06-01] MEDS: INSULIN ASPART SUPPLEMENTAL SCALE SQ SCH ×6 (04:00→20:00)
[2017-06-01 04:28] LABS: HEMATOCRIT 21.6 % (39.0-51.0); HEMOGLOBIN 7.2 GM/DL (13.0-17.0); MEAN CELL VOLUME 94.6 FL (80.0-100.0); MEAN CORPUSCULAR HEMOGLOBIN 31.6 PG (27.0-34.0); MEAN CORPUSCULAR HGB CONC 33.4 % (32.0-36.0); MEAN PLATELET VOLUME 10.3 FL (7.0-11.0); PLATELET COUNT 94 TH/MM3 (150-450); RED BLOOD COUNT 2.28 MIL/MM3 (4.50-5.90); RED CELL DISTRIBUTION WIDTH 15.3 % (11.6-17.2); WHITE BLOOD COUNT 10.8 TH/MM3 (4.0-11.0)
[2017-06-01 04:49] LABS: ALBUMIN 1.3 GM/DL (3.4-5.0); ALKALINE PHOSPHATASE 63 U/L (45-117); ALT (GPT) 24 U/L (12-78); AST (GOT) 29 U/L (15-37); BICARBONATE 37.1 MEQ/L (21.0-32.0); BLOOD UREA NITROGEN 42 MG/DL (7-18); CALCIUM 7.8 MG/DL (8.5-10.1); CHLORIDE 123 MEQ/L (98-107); CREATININE 0.91 MG/DL (0.60-1.30); GLOMERULAR FILTRATION RATE 86 ML/MIN (>89); GLUCOSE,RANDOM 120 MG/DL (74-106); MAGNESIUM 2.6 MG/DL (1.5-2.5); TOTAL BILIRUBIN ADULT 0.4 MG/DL (0.2-1.0); TOTAL PROTEIN 4.8 GM/DL (6.4-8.2)
[2017-06-01 04:52] LABS: SODIUM (NA) 163 MEQ/L (136-145)
[2017-06-01] MEDS: TOBRAMYCIN INJ 200 MG in SODIUM CHLORIDE 0.9% INJ 100 ML IV SCH ×2 (05:05→17:55)
[2017-06-01] MEDS: MEROPENEM INJ 1,000 MG in SODIUM CHLORIDE 0.9% INJ 100 ML IV SCH ×3 (05:05→21:54)
[2017-06-01 06:06] LABS: BANDS 7 % (0-6); DOHLE BODIES PRESENT (NONE SEEN); LYMPHOCYTES 6 % (9-44); MONOCYTES 3 % (0-8); NEUTROPHIL # MANUAL DIFF 9.8 TH/MM3 (1.8-7.7); POLYS (SEG NEUTROPHILS) 84 % (16-70)
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
[2017-06-01] MEDS: BISACODYL 10 MG SUPP RECTAL SCH (07:31)
[2017-06-01] MEDS: FAMOTIDINE 20 MG/2 ML VIAL IV PUSH SCH ×2 (07:31→19:51)
[2017-06-01] MEDS: levETIRAcetam INJ 500 MG in SODIUM CHLORIDE 0.9% INJ 100 ML IV SCH ×2 (07:31→19:51)
[2017-06-01] MEDS: DOCUSATE SODIUM 50 MG/SENNA 8.6 MG TAB PO SCH ×2 (07:31→19:50)
[2017-06-01] MEDS: ARTIFICIAL TEARS OPTH OINT 3.5 APPLIC/3.5 GM TUBO EACH EYE SCH ×2 (07:32→19:51)
[2017-06-01] MEDS: SODIUM CHLORIDE 0.9% FLUSH 10 ML FLUSH IV FLUSH SCH (07:32)
[2017-06-01] MEDS: BACITRACIN TOP OINT 15 GM TUBE TOPICAL SCH (07:32)
[2017-06-01] MEDS: CHLORHEXIDINE 0.12% (ORAL KIT) 15 ML CUP MT SCH ×2 (07:33→19:50)
[2017-06-01] MEDS: RESP: SODIUM CHLORIDE 3% 4 ML NEB NEB SCH ×2 (08:04→20:00)
[2017-06-01] MEDS: POTASSIUM PHOSPHATE INJ 30 MMOL in SODIUM CHLOR 0.9% 250 ML INJ 250 ML IV PRN (08:42)
[2017-06-01] MEDS ORDERED: SODIUM CHLOR 0.9% 250 ML INJ 250 ML IV ONE (10:00)
[2017-06-01] MEDS ORDERED: EPINEPHrine HCL (1:10,000) 1 MG/10 ML SYRINGE ONE (11:11)
--- NOTE | 2017-06-01 11:38 | RADRPT ---
EXAM DATE/TIME: 06/01/2017 10:17 [place] COMPARISON: CT PULMONARY ANGIOGRAM, May 26, 2017, 10:47. CHEST SINGLE AP, May 28, 2017, 4:35. CHEST S TUYET AP, May 30, 2017, 4:46. CHEST SINGLE AP, May 31, 2017, 5:00. INDICATIONS : ARDS. Chest tube. MEDICAL HISTORY : None. SURGICAL HISTORY : None. ENCOUNTER: Subsequent ACUITY: 1 day PAIN SCORE: Non-responsive. LOCATION: Bilateral chest FINDINGS: The ET tube, NG tube and right internal jugular central line are well-placed. There are bilateral donald st tubes. A pneumothorax is not seen. There is diffuse areas of parenchymal consolidation being mos t prominent in the right mid and lower lung and the left lateral upper lung. There may be slight imp rovement in aeration on the current exam. There is silhouetting of much of the right hemidiaphragm. The left costophrenic angle is grossly clear. There is calcific density seen over the left glenohum eral joint. CONCLUSION: 1. Diffuse areas of consolidation with more focal consolidation in the left upper lung and right mid and lower lung. Diffuse process such as edema and/or infection could have this appearance. 2. Increased density with silhouetting of the right hemidiaphragm. Some diffuse of right effusion c ould not be excluded. 3. Bilateral chest tubes without evidence of pneumothorax. Tyrel Alicia MD on June 01, 2017 at 11:11 Board Certified Radiologist. This report was verified electronically.
[2017-06-01] MEDS ORDERED: PHARMACY ORDERED LAB ONE ×4 (11:45→19:30)
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
[2017-06-01] MEDS: EPOPROSTENOL NEB SOLUTION 50 NG/KG/MIN 100 ML NEB SCH ×4 (14:44)
[2017-06-01] MEDS: DEXTROSE 5% IN WATE 1000ML INJ 1,000 ML IV SCH (16:00)
[2017-06-01] MEDS ORDERED: ATROPINE SULFATE 1 MG/10 ML SYRINGE ONE (19:39)
[2017-06-01] MEDS: MULTIVITAMIN IV SCH ×3 (19:49)
[2017-06-01] MEDS: FOLIC ACID IV SCH ×3 (19:49)
[2017-06-01] MEDS: DEXTROSE IV SCH ×3 (19:49)
[2017-06-01] MEDS: [UNRECOGNIZED DRUG - OTHER] IV SCH ×3 (19:49)
[2017-06-01] MEDS: ENOXAPARIN SODIUM 40 MG/0.4 ML SYRINGE SQ SCH (19:50)
[2017-06-01] MEDS: FAT EMULSION 20% INJ 250 ML (@10 mls/hr) IV-CENTRAL SCH (19:50)
[2017-06-02] VITALS (14 sets, daily range): BP systolic 99–116; BP diastolic 4–61; PULSE 92–108; RESP 32; TEMP 98–100.5; O2SAT 92–100
[2017-06-02] MEDS: INSULIN ASPART SUPPLEMENTAL SCALE SQ SCH ×5 (00:33→16:45)
[2017-06-02] MEDS: CHLORHEXIDINE GLUCONATE 2 % 1 PACK (2 CLOTHS) TOP SCH (00:33)
[2017-06-02] MEDS: EPOPROSTENOL NEB SOLUTION 50 NG/KG/MIN 100 ML NEB SCH ×8 (03:09→16:00)
[2017-06-02] MEDS: RESP: ALBUTEROL 2.5 MG/3 ML NEB (PRN) NEB ×2 (03:14→07:48)
[2017-06-02 04:17] LABS: AUTOMATED NEUTROPHIL # 10.1 TH/MM3 (1.8-7.7); BASOPHIL % 0.3 % (0.0-2.0); EOSINOPHIL # 0.2 TH/MM3 (0-0.4); EOSINOPHIL % 1.5 % (0.0-4.0); HEMATOCRIT 23.4 % (39.0-51.0); HEMOGLOBIN 7.8 GM/DL (13.0-17.0); LYMPH % 6.9 % (9.0-44.0); LYMPHOCYTE # 0.8 TH/MM3 (1.0-4.8); MEAN CELL VOLUME 93.4 FL (80.0-100.0); MEAN CORPUSCULAR HEMOGLOBIN 31.2 PG (27.0-34.0); MEAN CORPUSCULAR HGB CONC 33.4 % (32.0-36.0); MEAN PLATELET VOLUME 10.9 FL (7.0-11.0); MONO % 2.8 % (0.0-8.0); MONOCYTE # 0.3 TH/MM3 (0-0.9); NEUT % 88.5 % (16.0-70.0); PLATELET COUNT 119 TH/MM3 (150-450); RED CELL DISTRIBUTION WIDTH 15.5 % (11.6-17.2); WHITE BLOOD COUNT 11.4 TH/MM3 (4.0-11.0)
[2017-06-02 04:46] LABS: ALBUMIN 1.3 GM/DL (3.4-5.0); ALKALINE PHOSPHATASE 58 U/L (45-117); ALT (GPT) 27 U/L (12-78); AST (GOT) 32 U/L (15-37); BICARBONATE 39.7 MEQ/L (21.0-32.0); BLOOD UREA NITROGEN 45 MG/DL (7-18); CHLORIDE 123 MEQ/L (98-107); GLOMERULAR FILTRATION RATE 77 ML/MIN (>89); GLUCOSE,RANDOM 199 MG/DL (74-106); MAGNESIUM 2.5 MG/DL (1.5-2.5); PHOSPHORUS 2.6 MG/DL (2.5-4.9); TOTAL BILIRUBIN ADULT 0.5 MG/DL (0.2-1.0); TOTAL PROTEIN 4.6 GM/DL (6.4-8.2)
[2017-06-02 04:55] LABS: SODIUM (NA) 164 MEQ/L (136-145)
--- NOTE | 2017-06-02 05:47 | RADRPT ---
EXAM DATE/TIME: 06/02/2017 04:42 [place] COMPARISON: CHEST SINGLE AP, June 01, 2017, 10:17. INDICATIONS : Short of breath. MEDICAL HISTORY : None. SURGICAL HISTORY : None. ENCOUNTER: Subsequent ACUITY: 1 week PAIN SCORE: 0/10 LOCATION: Bilateral chest FINDINGS: Stable ETT, NGT, right IJ central line, left apical chest tube and right inferior chest tube. No sign ificant pneumothorax. Diffuse interstitial and airspace opacities which appear more confluent in the right mid and lower lung zones and left upper lung zone. This appears slightly improved in comparison to prior exam. Cardiomediastinal contours are within normal limits. Remainder of the exam is unchang ed. CONCLUSION: 1. Stable bilateral chest tubes without pneumothorax. 2. Diffuse interstitial and airspace opacities appear more confluent in the left upper lung zone and right mid and lower lung zones. This is appears slightly improved. Differential considerations again include ARDS versus diffuse infection. Praveen Bach MD on June 02, 2017 at 5:43 Board Certified Radiologist. This report was verified electronically.
[2017-06-02] MEDS ORDERED: TOBRAMYCIN IV ONE (06:00)
[2017-06-02] MEDS ORDERED: SODIUM CHLORIDE 0.9% IV ONE (06:00)
[2017-06-02] MEDS: MEROPENEM INJ 1,000 MG in SODIUM CHLORIDE 0.9% INJ 100 ML IV SCH (06:32)
[2017-06-02] MEDS: VASOPRESSIN INJ 40 UNITS in DEXTROSE 5% IN WATER 100ML INJ 98 ML IV SCH ×2 (07:45)
[2017-06-02] MEDS: RESP: SODIUM CHLORIDE 3% 4 ML NEB NEB SCH ×2 (07:48→20:00)
[2017-06-02] MEDS: CHLORHEXIDINE 0.12% (ORAL KIT) 15 ML CUP MT SCH ×2 (08:00→20:57)
[2017-06-02] MEDS: ENOXAPARIN SODIUM 40 MG/0.4 ML SYRINGE SQ SCH ×2 (08:08→20:40)
[2017-06-02] MEDS: DOCUSATE SODIUM 50 MG/SENNA 8.6 MG TAB PO SCH ×2 (08:08→20:40)
[2017-06-02] MEDS: BISACODYL 10 MG SUPP RECTAL SCH (08:08)
[2017-06-02] MEDS: FAMOTIDINE 20 MG/2 ML VIAL IV PUSH SCH ×2 (08:09→21:56)
[2017-06-02] MEDS: DEXTROSE IV SCH ×3 (08:09)
[2017-06-02] MEDS: ARTIFICIAL TEARS OPTH OINT 3.5 APPLIC/3.5 GM TUBO EACH EYE SCH ×2 (08:09→20:58)
[2017-06-02] MEDS: FOLIC ACID IV SCH ×6 (08:09→20:40)
[2017-06-02] MEDS: BACITRACIN TOP OINT 15 GM TUBE TOPICAL SCH (08:09)
[2017-06-02] MEDS: MULTIVITAMIN IV SCH ×6 (08:09→20:40)
[2017-06-02] MEDS: SODIUM CHLORIDE 0.9% FLUSH 10 ML FLUSH IV FLUSH SCH (08:09)
[2017-06-02] MEDS: [UNRECOGNIZED DRUG - OTHER] IV SCH ×3 (08:09)
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
[2017-06-02] MEDS: levETIRAcetam INJ 500 MG in SODIUM CHLORIDE 0.9% INJ 100 ML IV SCH ×2 (08:27→20:41)
[2017-06-02] MEDS: CISATRACURIUM IV PRN ×4 (08:30→17:01)
[2017-06-02] MEDS: WATER IV PRN ×6 (08:30→17:56)
[2017-06-02] MEDS: DEXTROSE 5% IV PRN ×6 (08:30→17:56)
[2017-06-02] MEDS ORDERED: FUROSEMIDE 40 MG/4 ML VIAL IV PUSH ONE (09:15)
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
[2017-06-02] MEDS: fentaNYL DRIP 250 ML IV PRN (10:00)
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
[2017-06-02] MEDS ORDERED: LEVOFLOXACIN 750 MG PREMIX INJ 150 ML IV SCH (12:00)
[2017-06-02] MEDS: CEFEPIME INJ 2,000 MG in SODIUM CHLORIDE 0.9% INJ 100 ML IV SCH ×2 (12:05→18:44)
[2017-06-02 13:25] LABS: BICARBONATE 34.3 MEQ/L (21.0-32.0); CALCIUM 7.8 MG/DL (8.5-10.1); CREATININE 1.02 MG/DL (0.60-1.30); MAGNESIUM 2.5 MG/DL (1.5-2.5)
[2017-06-02] MEDS: POTASSIUM CHLOR 40 MEQ PREMIX 100 ML IV PRN (13:42)
[2017-06-02] MEDS: NOREPINEPHRINE INJ 8 MG in SODIUM CHLORID 0.9% 500 ML INJ 492 ML IV PRN (14:00)
--- NOTE | 2017-06-02 14:03 | HHI.IDPN ---
Subjective Subjective Remarks remains critical On prone vent'n Pt was supine x 1 hr today and yday + low grade fever 100.5 Pt was seen earlier today around 10 am this is deleyed entry Antibiotics tobra iv meropenem Allergies: Coded Allergies: No Allergy Information Available (Unverified , 05/23/17) unable to obtain Objective . Vital Signs Date Time Temp Pulse Resp B/P (MAP) Pulse Ox O2 Delivery O2 Flow Rate FiO2 06/02/17 12:00 100.5 108 32 109/59 (76) 100 06/02/17 12:00 50 06/02/17 11:56 100 50 06/02/17 10:53 99 50 06/02/17 08:00 50 06/02/17 08:00 99.5 92 32 116/59 (78) 97 06/02/17 07:50 98 50 06/02/17 06:00 92 115/60 (78) 06/02/17 04:30 100 100 06/02/17 04:00 100 06/02/17 04:00 98 06/02/17 04:00 100.0 98 32 113/61 (78) 98 06/02/17 03:14 94 50 06/02/17 00:00 96 06/02/17 00:00 50 06/02/17 00:00 100.0 96 32 113/61 (78) 95 06/01/17 23:06 96 50 06/01/17 20:24 94 50 06/01/17 20:00 50 06/01/17 20:00 99.7 95 32 113/60 (77) 95 06/01/17 20:00 95 06/01/17 18:00 96 115/60 (78) 06/01/17 16:17 95 50 06/01/17 16:00 99.1 88 32 107/61 (76) 97 06/01/17 16:00 88 06/01/17 16:00 50 06/02/17 06/02/17 06/03/17 15:00 23:00 07:00 Intake Total 1327 ml Balance 1327 ml Intake IV Total 1327 ml . Laboratory Tests Test 05/31/17 18:00 06/01/17 04:00 06/02/17 04:00 Hemoglobin 7.2 GM/DL 7.2 GM/DL 7.8 GM/DL Hematocrit 21.3 % 21.6 % 23.4 % White Blood Count 10.8 TH/MM3 11.4 TH/MM3 Red Blood Count 2.28 MIL/MM3 2.50 MIL/MM3 Mean Corpuscular Volume 94.6 FL 93.4 FL Mean Corpuscular Hemoglobin 31.6 PG 31.2 PG Mean Corpuscular Hemoglobin Concent 33.4 % 33.4 % Red Cell Distribution Width 15.3 % 15.5 % Platelet Count 94 TH/MM3 119 TH/MM3 Mean Platelet Volume 10.3 FL 10.9 FL CBC Comment AUTO DIFF DIFF FINAL Differential Total Cells Counted 100 Neutrophils % (Manual) 84 % Band Neutrophils % 7 % Lymphocytes % 6 % Monocytes % 3 % Neutrophils # (Manual) 9.8 TH/MM3 Differential Comment FINAL DIFF MANUAL Dohle Bodies PRESENT Platelet Estimate NORMAL Platelet Morphology Comment NORMAL Basophilic Stippling FAINT Neutrophils (%) (Auto) 88.5 % Lymphocytes (%) (Auto) 6.9 % Monocytes (%) (Auto) 2.8 % Eosinophils (%) (Auto) 1.5 % Basophils (%) (Auto) 0.3 % Neutrophils # (Auto) 10.1 TH/MM3 Lymphocytes # (Auto) 0.8 TH/MM3 Monocytes # (Auto) 0.3 TH/MM3 Eosinophils # (Auto) 0.2 TH/MM3 Basophils # (Auto) 0.0 TH/MM3 Laboratory Tests Test 06/01/17 04:00 06/02/17 04:00 06/02/17 12:50 Blood Urea Nitrogen 42 MG/DL 45 MG/DL 44 MG/DL Creatinine 0.91 MG/DL 1.00 MG/DL 1.02 MG/DL Random Glucose 120 MG/DL 199 MG/DL 221 MG/DL Total Protein 4.8 GM/DL 4.6 GM/DL Albumin 1.3 GM/DL 1.3 GM/DL Calcium Level 7.8 MG/DL 8.0 MG/DL 7.8 MG/DL Phosphorus Level 2.0 MG/DL 2.6 MG/DL 3.0 MG/DL Magnesium Level 2.6 MG/DL 2.5 MG/DL 2.5 MG/DL Alkaline Phosphatase 63 U/L 58 U/L Aspartate Amino Transf (AST/SGOT) 29 U/L 32 U/L Alanine Aminotransferase (ALT/SGPT) 24 U/L 27 U/L Total Bilirubin 0.4 MG/DL 0.5 MG/DL Sodium Level 163 MEQ/L 164 MEQ/L 161 MEQ/L Potassium Level 3.9 MEQ/L 3.7 MEQ/L 3.5 MEQ/L Chloride Level 123 MEQ/L 123 MEQ/L 122 MEQ/L Carbon Dioxide Level 37.1 MEQ/L 39.7 MEQ/L 34.3 MEQ/L Anion Gap 3 MEQ/L 1 MEQ/L 5 MEQ/L Estimat Glomerular Filtration Rate 86 ML/MIN 77 ML/MIN 75 ML/MIN Microbiology Date/Time Source Procedure Growth Status 05/31/17 13:10 Sputum Endotracheal Gram Stain - Final Complete 05/31/17 13:10 Sputum Culture - Final Pseudomonas Aeruginosa Stenotrophomonas Maltophilia Complete Imaging Last Impressions Chest X-Ray 06/01/17 0000 Signed Impressions: Service Date/Time: Thursday, June 01, 2017 10:17 - CONCLUSION: 1. Diffuse areas of consolidation with more focal consolidation in the left upper lung and right mid and lower lung. Diffuse process such as edema and/or infection could have this appearance. 2. Increased density with silhouetting of the right hemidiaphragm. Some diffuse of right effusion could not be excluded. 3. Bilateral chest tubes without evidence of pneumothorax. Tyrel Alicia MD Abdomen X-Ray 05/27/17 0000 Signed Impressions: Service Date/Time: Saturday, May 27, 2017 03:57 - CONCLUSION: The Dobbhoff feeding tube remains located in the left lower lobe bronchus. Servando Mccabe MD Upper Extremity Ultrasound 05/26/17 0000 Signed Impressions: Service Date/Time: Friday, May 26, 2017 08:35 - CONCLUSION: 1. DVT involving the right brachial vein with superficial venous thrombus involving the left cephalic vein. Both are occlusive. Michael Santoro Jr., MD Lower Extremity Ultrasound 05/26/17 0000 Signed Impressions: Service Date/Time: Friday, May 26, 2017 08:18 - CONCLUSION: 1. No DVT identified. Jacob Hernandez MD CT Angiography 05/26/17 0000 Signed Impressions: Service Date/Time: Friday, May 26, 2017 10:47 - CONCLUSION: 1. No large or central pulmonary embolus identified. 2. Bilateral pleural effusions and consolidative changes at both lung bases. Jacob Hernandez MD Abdomen/Pelvis CT 05/26/17 0000 Signed Impressions: Service Date/Time: Friday, May 26, 2017 10:47 - CONCLUSION: 1. Progressive dense bilateral airspace consolidation at the lung bases likely reflecting contusion/atelectasis. 2. Redemonstration of multiple left transverse process fractures and T12 superior plate compression fracture with evolving left psoas hematoma. 3. Indeterminate density left adrenal mass. This may be further evaluated on an outpatient basis with MRI adrenal mass protocol as indicated. 4. Additional stable ancillary findings, as above. Praveen Bach MD Head CT 05/25/17 0600 Signed Impressions: Service Date/Time: Thursday, May 25, 2017 04:01 - CONCLUSION: 1. Evolving left subdural hematoma, left frontal, temporal lobe contusions and subarachnoid hemorrhage. No new intracranial hemorrhage is identified. Jony Juarez MD Thoracic Spine CT [id number] Signed Impressions: Service Date/Time: Tuesday, May 23, 2017 19:00 - CONCLUSION: 1. Mild superior endplate compression fracture of T12 without retropulsion. No canal stenosis. No other fractures identified in the thoracic spine. Jony Juarez MD Pelvis X-Ray [id number] Signed Impressions: Service Date/Time: Tuesday, May 23, 2017 18:29 - CONCLUSION: 1. No acute findings. Jony Juarez MD Maxillofacial CT [id number] Signed Impressions: Service Date/Time: Tuesday, May 23, 2017 18:53 - CONCLUSION: 1. No acute facial bone fracture identified. Jony Juarez MD Lumbar Spine CT [id number] Signed Impressions: Service Date/Time: Tuesday, May 23, 2017 19:00 - CONCLUSION: 1. Mild superior endplate compression fracture of T12 without retropulsion. 2. Left-sided transverse process fractures from L1-L4. 3. Focally advanced degenerative change at L4-5 with minimal degenerative retrolisthesis. Jony Juarez MD Chest CT [id number] Signed Impressions: Service Date/Time: Tuesday, May 23, 2017 19:00 - CONCLUSION: 1. Mild superior endplate compression fracture of T12. 2. Right clavicle fracture. 3. Mild lung contusions with dependent atelectasis or aspiration. 4. Endotracheal tube and nasogastric tube in good position. Mild coronary calcifications. 5. Negative for traumatic aortic injury. Jony Juarez MD Cervical Spine CT 05/23/17 [id number] Signed Impressions: Service Date/Time: Tuesday, May 23, 2017 18:53 - CONCLUSION: 1. No acute cervical spine fracture identified. Nondisplaced right occipital bone fracture. Jony Juarez MD Physical Exam Pt's exam is limited substantially 2/2 prone position CONSTITUTIONAL/GENERAL: This is an adequately nourished patient,sedated, intubated, paralysed, pronned TUBES/LINES/DRAINS: SKIN: No jaundice, rashes, or lesions on visulised areas HEAD: Atraumatic. Normocephalic. Prominent facila edema EYES: Unable to examine - pt is in prone position ENT: Hearing not tested. Unable to examine oral mucosae - pt is in prone position NECK: Unable to examine - pt is in prone position CARDIOVASCULAR: Regular rate and rhythm on monitor. B/l hands adn R toes 1-5 dusky and tips cold to touch with evolving early gangrenous changes in some finger tips Unable to visualise L foot 2/2 position RESPIRATORY/CHEST: Symmetric, respirations. Scattered rhonchi posteriorly to auscultation. B/l CT with serosang fluid GASTROINTESTINAL: Unable to examine - pt is in prone position rectal tube in place - with small amount of liquid stool GENITOURINARY: Sanabria catheter in place with clear yellow urine MUSCULOSKELETAL: Extremities without clubbing + cyanosis, duskiness of toes and fingers tips + edema. NEUROLOGICAL:Sedated, paralysed PSYCHIATRIC: unable to assess 2/2 clinical condition Assessment & Plan Remarks Assessment and Plan Assessment and Plan sp multitrauma, including [employer] trauma and pulmonary contusions PNA, PSAE , Serratia, Acinetobacter Now growing dill S PSAE and Steno malt R to ceftazidime Bacteremia, high grade - PSAE - resolved Severe sepsis-clincailly resolved SEvere leukopenia : resolved Resp failure, some improvemnt in the last 24 hrs Pt is critical and unstable again from resp standpoint ? new infx with more resistant organisms s/p 2 CT placement He has life threatening PNA and sepsis Perfusion related damage noted in all 4 extremeties : probably will demarkate in the next days; pt will have some tissue loss fingers/toes dc meropenem + tobra start cefepime start iv bactrim angella perales micro lab dw family @ b/s dw pharmacist Irma Ayon MD Jun 02, 2017 14:03
[2017-06-02] MEDS ORDERED: SULFAMETHOX/TRIMETHOPRIM 160 MG/10 ML VIAL IV SCH (14:15)
[2017-06-02] MEDS ORDERED: SULFAMETHOX IV SCH ×5 (15:00)
[2017-06-02] MEDS ORDERED: DEXTROSE 5% IV SCH ×4 (15:00)
[2017-06-02] MEDS ORDERED: TRIMETHOPRIM IV SCH ×5 (15:00)
[2017-06-02] MEDS ORDERED: SODIUM CHLORID 0.9% IV SCH (15:00)
[2017-06-02] MEDS ORDERED: WATE IV SCH ×4 (15:00)
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
[2017-06-02] MEDS: DEXTROSE 5% IV SCH ×2 (16:22)
[2017-06-02] MEDS: DEXTROSE 5% IN WATE 1000ML INJ 1,000 ML IV SCH (16:22)
[2017-06-02] MEDS: WATE IV SCH ×2 (16:22)
[2017-06-02] MEDS: SULFAMETHOX IV SCH ×2 (16:22)
[2017-06-02] MEDS: TRIMETHOPRIM IV SCH ×2 (16:22)
[2017-06-02] MEDS ORDERED: DEXTROSE 50% IN WATER 50 ML VIAL(D50) IV PUSH PRN (17:00)
[2017-06-02] MEDS: MIDAZOLAM IV PRN ×2 (17:56)
[2017-06-02] MEDS: INSULIN NovoLIN REGULAR SUPPLEMENTAL SCALE SQ SCH (20:00)
[2017-06-02] MEDS: FAT EMULSION 20% INJ 250 ML (@10 mls/hr) IV-CENTRAL SCH (20:39)
[2017-06-02] MEDS: AMINO ACID IV SCH ×3 (20:40)
[2017-06-02] MEDS: [UNRECOGNIZED DRUG - OTHER] IV SCH ×3 (20:40)
[2017-06-03] VITALS (18 sets, daily range): BP systolic 47–110; BP diastolic 50–74; PULSE 81–115; RESP 26–32; TEMP 98–101.5; O2SAT 90–98
[2017-06-03] MEDS: TRIMETHOPRIM IV SCH ×4 (00:31→09:09)
[2017-06-03] MEDS: DEXTROSE 5% IV SCH ×4 (00:31→09:09)
[2017-06-03] MEDS: WATE IV SCH ×4 (00:31→09:09)
[2017-06-03] MEDS: SULFAMETHOX IV SCH ×4 (00:31→09:09)
[2017-06-03] MEDS: CISATRACURIUM IV PRN ×2 (01:12)
[2017-06-03] MEDS: WATER IV PRN ×6 (01:12→18:17)
[2017-06-03] MEDS: DEXTROSE 5% IV PRN ×6 (01:12→18:17)
[2017-06-03] MEDS: EPOPROSTENOL NEB SOLUTION 50 NG/KG/MIN 100 ML NEB SCH ×6 (03:30→20:21)
[2017-06-03] MEDS: CEFEPIME INJ 2,000 MG in SODIUM CHLORIDE 0.9% INJ 100 ML IV SCH ×3 (03:31→20:26)
[2017-06-03] MEDS: CHLORHEXIDINE GLUCONATE 2 % 1 PACK (2 CLOTHS) TOP SCH (04:00)
[2017-06-03] MEDS: INSULIN NovoLIN REGULAR SUPPLEMENTAL SCALE SQ SCH ×6 (04:00→20:00)
[2017-06-03] MEDS: fentaNYL DRIP 250 ML IV PRN ×2 (05:58→20:21)
[2017-06-03 06:01] LABS: AUTOMATED NEUTROPHIL # 14.1 TH/MM3 (1.8-7.7); BASOPHIL % 0.2 % (0.0-2.0); EOSINOPHIL # 0.2 TH/MM3 (0-0.4); EOSINOPHIL % 1.2 % (0.0-4.0); HEMATOCRIT 25.5 % (39.0-51.0); HEMOGLOBIN 8.3 GM/DL (13.0-17.0); LYMPH % 6.8 % (9.0-44.0); LYMPHOCYTE # 1.1 TH/MM3 (1.0-4.8); MEAN CELL VOLUME 94.5 FL (80.0-100.0); MEAN CORPUSCULAR HEMOGLOBIN 30.7 PG (27.0-34.0); MEAN CORPUSCULAR HGB CONC 32.5 % (32.0-36.0); MEAN PLATELET VOLUME 11.2 FL (7.0-11.0); MONO % 2.6 % (0.0-8.0); MONOCYTE # 0.4 TH/MM3 (0-0.9); NEUT % 89.2 % (16.0-70.0); PLATELET COUNT 112 TH/MM3 (150-450); RED CELL DISTRIBUTION WIDTH 15.5 % (11.6-17.2); WHITE BLOOD COUNT 15.8 TH/MM3 (4.0-11.0)
[2017-06-03 06:24] LABS: ALBUMIN 1.2 GM/DL (3.4-5.0); ALKALINE PHOSPHATASE 75 U/L (45-117); ALT (GPT) 51 U/L (12-78); AST (GOT) 68 U/L (15-37); BICARBONATE 32.2 MEQ/L (21.0-32.0); BLOOD UREA NITROGEN 46 MG/DL (7-18); CALCIUM 7.7 MG/DL (8.5-10.1); CHLORIDE 118 MEQ/L (98-107); CREATININE 1.12 MG/DL (0.60-1.30); GLOMERULAR FILTRATION RATE 68 ML/MIN (>89); GLUCOSE,RANDOM 279 MG/DL (74-106); MAGNESIUM 2.3 MG/DL (1.5-2.5); PHOSPHORUS 2.9 MG/DL (2.5-4.9); TOTAL BILIRUBIN ADULT 0.6 MG/DL (0.2-1.0); TOTAL PROTEIN 4.7 GM/DL (6.4-8.2)
[2017-06-03 06:36] LABS: SODIUM (NA) 156 MEQ/L (136-145)
[2017-06-03] MEDS: POTASSIUM CHLOR 40 MEQ PREMIX 100 ML IV PRN (06:48)
[2017-06-03] MEDS: RESP: SODIUM CHLORIDE 3% 4 ML NEB NEB SCH ×2 (08:00→19:30)
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
[2017-06-03] MEDS: [UNRECOGNIZED DRUG - OTHER] IV SCH ×3 (08:07)
[2017-06-03] MEDS: AMINO ACID IV SCH ×3 (08:07)
[2017-06-03] MEDS: FOLIC ACID IV SCH ×3 (08:07)
[2017-06-03] MEDS: MULTIVITAMIN IV SCH ×3 (08:07)
[2017-06-03 08:18] LABS: BANDS 21 % (0-6); BASOPHILS 2 % (0-2); CORRECTED NUCLEATED RBC 1 /100 WBC (0-0); LYMPHOCYTES 3 % (9-44); MONOCYTES 2 % (0-8); NEUTROPHIL # MANUAL DIFF 14.4 TH/MM3 (1.8-7.7); NUCLEATED RED BLOOD CELL 1 (0-0); POLYS (SEG NEUTROPHILS) 70 % (16-70)
[2017-06-03] MEDS: BISACODYL 10 MG SUPP RECTAL SCH (09:00)
[2017-06-03] MEDS: ENOXAPARIN SODIUM 40 MG/0.4 ML SYRINGE SQ SCH ×2 (09:08→20:48)
[2017-06-03] MEDS: FUROSEMIDE 40 MG/4 ML VIAL IV PUSH SCH ×2 (09:08→15:15)
[2017-06-03] MEDS: CHLORHEXIDINE 0.12% (ORAL KIT) 15 ML CUP MT SCH ×2 (09:09→20:00)
[2017-06-03] MEDS: ARTIFICIAL TEARS OPTH OINT 3.5 APPLIC/3.5 GM TUBO EACH EYE SCH ×2 (09:09→20:27)
[2017-06-03] MEDS: levETIRAcetam INJ 500 MG in SODIUM CHLORIDE 0.9% INJ 100 ML IV SCH ×2 (09:10→20:22)
[2017-06-03] MEDS: SODIUM CHLORIDE 0.9% FLUSH 10 ML FLUSH IV FLUSH SCH (09:10)
[2017-06-03] MEDS: FAMOTIDINE 20 MG/2 ML VIAL IV PUSH SCH ×2 (09:10→20:22)
[2017-06-03] MEDS: DOCUSATE SODIUM 50 MG/SENNA 8.6 MG TAB PO SCH ×2 (09:10→20:22)
[2017-06-03] MEDS: MIDAZOLAM IV PRN ×4 (09:11→18:17)
[2017-06-03] MEDS: BACITRACIN TOP OINT 15 GM TUBE TOPICAL SCH (09:11)
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
[2017-06-03] MEDS: CLOPIDOGREL 75 MG TAB NG SCH (10:00)
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
[2017-06-03] MEDS: LEVOFLOXACIN 750 MG PREMIX INJ 150 ML IV SCH (13:00)
[2017-06-03] MEDS ORDERED: ALBUMIN 5% INJ 500 ML IV ONE (15:00)
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
[2017-06-03] MEDS ORDERED: ALBUMIN 25% INJ 100 ML IV ONE (15:12)
--- NOTE | 2017-06-03 15:36 | RADRPT ---
EXAM DATE/TIME: 06/03/2017 14:32 [place] COMPARISON: CHEST SINGLE AP, June 01, 2017, 10:17. CHEST SINGLE AP, June 02, 2017, 4:42. INDICATIONS : Respiratory Failure. MEDICAL HISTORY : None. SURGICAL HISTORY : None. ENCOUNTER: Subsequent ACUITY: 2 weeks PAIN SCORE: Non-responsive. LOCATION: Bilateral chest FINDINGS: 2 AP views of the chest demonstrate a normal-sized cardiac silhouette. ETT, nasogastric tube, and rig ht IJ line remain present. Multiple EKG lines overlie the patient. Left chest tube is present. There is no pneumothorax. There is bilateral patchy airspace consolidation, right greater than left without significant change from yesterday's study. There is slight blunting of the right costophrenic sulcus . Displaced right clavicle fracture remains present. CONCLUSION: 1. Stable chest x-ray with bilateral patchy airspace consolidation, right greater than left. The cons olidation has improved compared to the chest x-ray from 2 days ago. 2. Left chest tube remains present and no pneumothorax is identified. Tyrel Aviles MD on June 03, 2017 at 15:29 Board Certified Radiologist. This report was verified electronically.
[2017-06-03] MEDS: DEXTROSE 5% IN WATE 1000ML INJ 1,000 ML IV SCH (16:00)
[2017-06-03] MEDS: ACETAMINOPHEN 650 MG/20.3 ML UDC OG-TUBE PRN (16:26)
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
[2017-06-03] MEDS ORDERED: Vancomycin Consult Pharmacy 1 EA OTHER SCH (18:00)
[2017-06-03] MEDS: NOREPINEPHRINE INJ 8 MG in SODIUM CHLORID 0.9% 500 ML INJ 492 ML IV PRN (18:16)
[2017-06-03] MEDS: RESP: ALBUTEROL 2.5 MG/3 ML NEB (PRN) NEB (19:29)
[2017-06-03] MEDS: FAT EMULSION 20% INJ 250 ML (@10 mls/hr) IV-CENTRAL SCH (20:26)
[2017-06-03] MEDS ORDERED: VANCOMYCIN INJ 2,500 MG in SODIUM CHLORID 0.9% 500 ML INJ 500 ML IV ONE (21:15)
[2017-06-03] MEDS: MICAFUNGIN INJ 150 MG in SODIUM CHLORIDE 0.9% INJ 100 ML IV SCH (21:30)
[2017-06-04] VITALS (13 sets, daily range): BP systolic 91–129; BP diastolic 6–53; PULSE 87–107; RESP 13–26; TEMP 99.7–100.8; O2SAT 88–97
[2017-06-04] MEDS: FUROSEMIDE 40 MG/4 ML VIAL IV PUSH SCH ×2 (00:23→08:38)
[2017-06-04] MEDS: [UNRECOGNIZED DRUG - OTHER] IV SCH ×3 (01:55)
[2017-06-04] MEDS: MULTIVITAMIN IV SCH ×6 (01:55→22:06)
[2017-06-04] MEDS: FOLIC ACID IV SCH ×6 (01:55→22:06)
[2017-06-04] MEDS: AMINO ACID IV SCH ×3 (01:55)
[2017-06-04] MEDS: CEFEPIME INJ 2,000 MG in SODIUM CHLORIDE 0.9% INJ 100 ML IV SCH (02:25)
[2017-06-04] MEDS: INSULIN NovoLIN REGULAR SUPPLEMENTAL SCALE SQ SCH ×6 (04:00→21:00)
[2017-06-04] MEDS: CHLORHEXIDINE GLUCONATE 2 % 1 PACK (2 CLOTHS) TOP SCH (04:00)
[2017-06-04 05:12] LABS: AUTOMATED NEUTROPHIL # 15.9 TH/MM3 (1.8-7.7); BASOPHIL # 0.1 TH/MM3 (0-0.2); BASOPHIL % 0.6 % (0.0-2.0); EOSINOPHIL % 0.2 % (0.0-4.0); HEMATOCRIT 22.7 % (39.0-51.0); HEMOGLOBIN 7.4 GM/DL (13.0-17.0); LYMPH % 4.8 % (9.0-44.0); LYMPHOCYTE # 0.9 TH/MM3 (1.0-4.8); MEAN CORPUSCULAR HEMOGLOBIN 30.5 PG (27.0-34.0); MEAN CORPUSCULAR HGB CONC 32.5 % (32.0-36.0); MEAN PLATELET VOLUME 12.2 FL (7.0-11.0); MONO % 4.4 % (0.0-8.0); MONOCYTE # 0.8 TH/MM3 (0-0.9); PLATELET COUNT 141 TH/MM3 (150-450); RED BLOOD COUNT 2.41 MIL/MM3 (4.50-5.90); WHITE BLOOD COUNT 17.7 TH/MM3 (4.0-11.0)
[2017-06-04 05:26] LABS: ALBUMIN 1.4 GM/DL (3.4-5.0); BICARBONATE 32.3 MEQ/L (21.0-32.0); CALCIUM 7.3 MG/DL (8.5-10.1); CALCIUM-PROTEIN CORRECTED 8.7 MG/DL (8.5-10.1); CREATININE 1.51 MG/DL (0.60-1.30); TOTAL BILIRUBIN ADULT 0.5 MG/DL (0.2-1.0); TOTAL PROTEIN 4.7 GM/DL (6.4-8.2)
--- NOTE | 2017-06-04 06:26 | RADRPT ---
EXAM DATE/TIME: 06/04/2017 05:07 [facility] COMPARISON: CHEST SINGLE AP, June 03, 2017, 14:32. INDICATIONS : Shortness of breath. MEDICAL HISTORY : None. SURGICAL HISTORY : None. ENCOUNTER: Subsequent ACUITY: 2 weeks PAIN SCORE: Non-responsive. LOCATION: Bilateral chest FINDINGS: Stable ETT, right IJ central line, and NGT.. Stable left apical chest tube. No significant pneumothor ax. Worsening diffuse interstitial and patchy mid to lower lung zone airspace disease. Cardiomediasti nal contours are stable. Remainder of the exam is unchanged. CONCLUSION: 1. Stable tubes and lines, as above. 2. Stable left apical chest tube without pneumothorax. 3. Worsening interstitial and patchy mid to lower lung zone bilateral airspace disease. Praveen Bach MD on June 04, 2017 at 6:24 Board Certified Radiologist. This report was verified electronically.
[2017-06-04 07:04] LABS: BANDS 22 % (0-6); CORRECTED NUCLEATED RBC 2 /100 WBC (0-0); LYMPHOCYTES 6 % (9-44); MONOCYTES 4 % (0-8); MYELOCYTES 1 % (0-0); NEUTROPHIL # MANUAL DIFF 15.9 TH/MM3 (1.8-7.7); NUCLEATED RED BLOOD CELL 2 (0-0); POLYS (SEG NEUTROPHILS) 67 % (16-70)
[2017-06-04 07:06] LABS: OVALOCYTES 1+ (NORMAL)
[2017-06-04] MEDS: RESP: SODIUM CHLORIDE 3% 4 ML NEB NEB SCH ×2 (07:53→19:26)
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
[2017-06-04] MEDS: BISACODYL 10 MG SUPP RECTAL SCH (08:36)
[2017-06-04] MEDS: VANCOMYCIN INJ 1,500 MG in SODIUM CHLORID 0.9% 500 ML INJ 500 ML IV SCH ×2 (08:36→21:02)
[2017-06-04] MEDS: FAMOTIDINE 20 MG/2 ML VIAL IV PUSH SCH ×2 (08:37→21:03)
[2017-06-04] MEDS: CLOPIDOGREL 75 MG TAB NG SCH (08:37)
[2017-06-04] MEDS: ENOXAPARIN SODIUM 40 MG/0.4 ML SYRINGE SQ SCH ×2 (08:37→21:04)
[2017-06-04] MEDS: DOCUSATE SODIUM 50 MG/SENNA 8.6 MG TAB PO SCH ×2 (08:37→21:03)
[2017-06-04] MEDS: CHLORHEXIDINE 0.12% (ORAL KIT) 15 ML CUP MT SCH ×2 (08:38→20:31)
[2017-06-04] MEDS: SODIUM CHLORIDE 0.9% FLUSH 10 ML FLUSH IV FLUSH SCH (08:38)
[2017-06-04] MEDS: ARTIFICIAL TEARS OPTH OINT 3.5 APPLIC/3.5 GM TUBO EACH EYE SCH ×2 (08:38→21:00)
[2017-06-04] MEDS: levETIRAcetam INJ 500 MG in SODIUM CHLORIDE 0.9% INJ 100 ML IV SCH ×2 (08:39→21:01)
[2017-06-04] MEDS: BACITRACIN TOP OINT 15 GM TUBE TOPICAL SCH (08:39)
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
[2017-06-04] MEDS ORDERED: ASP: Other exception documentation: ( ) PRN (11:00)
[2017-06-04] MEDS ORDERED: ASP: ID consult, note reason in consult order PRN (11:00)
[2017-06-04] MEDS ORDERED: MISCELLANEOUS PHARMACY INFORMATION XX PRN (11:00)
[2017-06-04] MEDS: DEXTROSE 5% IN WATE 1000ML INJ 1,000 ML IV SCH (11:30)
[2017-06-04] MEDS: EPOPROSTENOL NEB SOLUTION 50 NG/KG/MIN 100 ML NEB SCH ×6 (12:02→22:06)
[2017-06-04] MEDS: LEVOFLOXACIN 750 MG PREMIX INJ 150 ML IV SCH (12:30)
[2017-06-04] MEDS: LINEZOLID 600 MG PREMIX 300 ML IV SCH (13:49)
[2017-06-04] MEDS: MEROPENEM INJ 1,000 MG in SODIUM CHLORIDE 0.9% INJ 100 ML IV SCH ×2 (14:53→22:05)
[2017-06-04] MEDS: SULFAMETHOXAZOLE-TRIMETHOPRIM DS 800-160 MG TAB PO SCH ×2 (14:53→22:00)
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
--- NOTE | 2017-06-04 15:41 | MG ---
cc: Yenny Corbett MD EEG#: [id number] REFERRING PHYSICIAN: Lucille ROOM: [id number] With photic stimulation, fentanyl 150 mcg with 8 mg per hour of Versed intubated. CURRENT MEDICINES: As stated plus also on Levaquin, Plavix, possible and Keppra. DESCRIPTION OF RECORD: The patient is noted to intubated. Very low amplitude attenuated background noted seen in various montage. There is a lot of background ICU artifact, but the background is severely attenuated as stated; however, he is on fentanyl as documented. Photic stimulation: No appreciable driving response. IMPRESSION: Severely abnormal EEG, suppressed background with the patient still sedated. No epileptiform features. This might be seen in the setting of sedation versus severe encephalopathy. Clinical correlation. Yenny Corbett MD DF/cc , 03:18 PM , 03:39 PM
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
[2017-06-04] MEDS ORDERED: RASS Change Order XX ONE (17:45)
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
[2017-06-04] MEDS: RESP: ALBUTEROL 2.5 MG/3 ML NEB (PRN) NEB (19:25)
[2017-06-04] MEDS: MICAFUNGIN INJ 150 MG in SODIUM CHLORIDE 0.9% INJ 100 ML IV SCH (20:28)
[2017-06-04] MEDS: DEXTROSE 5% IV PRN ×2 (20:29)
[2017-06-04] MEDS: MIDAZOLAM IV PRN ×2 (20:29)
[2017-06-04] MEDS: WATER IV PRN ×2 (20:29)
[2017-06-04] MEDS: FAT EMULSION 20% INJ 250 ML (@10 mls/hr) IV-CENTRAL SCH (20:31)
[2017-06-04] MEDS ORDERED: FUROSEMIDE 40 MG/4 ML VIAL IV PUSH SCH (21:00)
[2017-06-04] MEDS: [UNRECOGNIZED DRUG - OTHER] IV SCH ×3 (22:06)
[2017-06-04] MEDS: DEXTROSE IV SCH ×3 (22:06)
[2017-06-04] MEDS: NOREPINEPHRINE INJ 8 MG in SODIUM CHLORID 0.9% 500 ML INJ 492 ML IV PRN (22:11)
[2017-06-05] VITALS (21 sets, daily range): BP systolic 100–128; BP diastolic 40–53; PULSE 81–110; RESP 14–19; TEMP 99.9–101.3; O2SAT 90–99
--- NOTE | 2017-06-05 00:18 | RADRPT ---
EXAM DATE/TIME: 06/04/2017 23:56 [facility] COMPARISON: CHEST SINGLE AP, June 04, 2017, 5:07. INDICATIONS : Post intubation. MEDICAL HISTORY : None. SURGICAL HISTORY : None. ENCOUNTER: Subsequent ACUITY: 2 weeks PAIN SCORE: Non-responsive. LOCATION: Bilateral chest FINDINGS: There is an ETT at the level of the clavicles. Right IJ central line has been removed. Interval place ment of left subclavian central line with tip in the very proximal SVC. There is an NGT coursing down the GE junction. Stable left apical chest tube. Interval development of moderate left pneumothorax m easuring 2.3 cm near the apex. Persistent bilateral interstitial and patchy mid to lower lung zone ai rspace disease. Remainder of the exam is unchanged. CONCLUSION: 1. Interval development of moderate left-sided pneumothorax with stable left apical chest tube in jake ce. Uncertain if chest tube is on pleurevac suction. Recommend evaluation of the chest tube. 2. ETT at the level the clavicles. 3. Left subclavian central line in the proximal SVC. 4. Persistent diffuse interstitial and patchy mid to lower lung zone bilateral airspace disease. Praveen Bach MD on June 05, 2017 at 0:12 Board Certified Radiologist. This report was verified electronically.
[2017-06-05] MEDS ORDERED: ROCURONIUM INJ 50 MG/5 ML VIAL ONE (00:23)
--- NOTE | 2017-06-05 00:53 | RADRPT ---
EXAM DATE/TIME: 06/05/2017 00:21 [facility] COMPARISON: CHEST SINGLE AP, June 04, 2017, 23:56. INDICATIONS : Chest tube placement. MEDICAL HISTORY : None. SURGICAL HISTORY : None. ENCOUNTER: Subsequent ACUITY: 2 weeks PAIN SCORE: Non-responsive. LOCATION: Bilateral chest FINDINGS: Stable ETT, left subclavian central line, NGT and large bore left apical chest tube. Interval placeme nt of a new pigtail left apical chest tube. Significantly improved left-sided pneumothorax with small residual pneumothorax measuring up to 1 cm. Remainder of the exam is unchanged. CONCLUSION: 1. Interval placement of new pigtail left apical chest tube with small residual left-sided pneumothor ax, significantly improved from prior exam. Praveen Bach MD on June 05, 2017 at 0:50 Board Certified Radiologist. This report was verified electronically.
[2017-06-05] MEDS: LINEZOLID 600 MG PREMIX 300 ML IV SCH ×2 (00:55→12:16)
[2017-06-05] MEDS ORDERED: ROCURONIUM INJ 50 MG/5 ML VIAL IV SCH (01:18)
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
--- NOTE | 2017-06-05 02:15 | PD.PROCEDR ---
Procedure Note Procedure Endotracheal Intubation Diagnosis: Severe ARDS Indications: Called to the bedside for patient with cuff leak. Diagnostic video laryngoscopy demonstrated supraglottic ET tube. Need for emergent reintubation Consent: Emergent Anesthesia: Versed, fentanyl IV, rocuronium IV Description of the Procedure: The patient was positioned in the sniffing position. Pre-oxygenation was performed using the patient's indwelling supraglottic ET tube 100% FiO2. With the cords visualized using video laryngoscopy, a bougie was used as a tube exchanger and the supraglottic ET tube was exchanged over the tube exchanger for an 8.5 ET tube. The ET tube was visualized moving over the tube exchanger into the trachea through the cords. Confirmation of correct endotracheal tube placement was made by equal and bilateral breath sounds and colorimetric CO2 detection. The endotracheal tube was secured at 25 cm at the teeth. There were no immediate complications noted. The patient remained hemodynamically stable throughout the procedure. A chest x-ray has been ordered. I personally performed the procedure. Greg Hawkins MD Jun 05, 2017 02:15
--- NOTE | 2017-06-05 02:17 | PD.PROCEDR ---
Procedure Note Procedure Percutaneous Pigtail Tube Thoracostomy Procedure Note Left anterior 10 Cam[place]onian pigtail chest tube Diagnosis: Acute left-sided pneumothorax with tension physiology Indications: Acute left-sided pneumothorax with tension physiology Consent: Emergent Anesthesia: Propofol, fentanyl IV Description of the Procedure: The patient was placed in the supine position. The left anterior chest was prepped and draped sterilely to include the nipple. The third intercostal space was identified. A small incision was made using a #11 blade. At the mid-clavicular line, a 10 Fr pigtail catheter with stylet and pencil point trochar introducer were inserted superior to the adjacent rib and the pigtail catheter was advanced over the trochar in a modified Seldinger Technique, easily and without resistance. The catheter was connected to a Pleur -o-vac and connected to -[id number] suction. The catheter was sutured to the skin using a 3-0 silk sandal suture and an occlusive dressing was applied. There were no immediate complications noted. There was minimal EBL. The patient tolerated the procedure well. A Chest x-ray has been ordered. I personally performed the procedure. Greg Hawkins MD Jun 05, 2017 02:17
[2017-06-05] MEDS: CHLORHEXIDINE GLUCONATE 2 % 1 PACK (2 CLOTHS) TOP SCH (03:34)
[2017-06-05] MEDS: INSULIN NovoLIN REGULAR SUPPLEMENTAL SCALE SQ SCH ×6 (04:00→20:00)
[2017-06-05 04:14] LABS: AUTOMATED NEUTROPHIL # 15.7 TH/MM3 (1.8-7.7); BASOPHIL # 0.3 TH/MM3 (0-0.2); BASOPHIL % 1.5 % (0.0-2.0); EOSINOPHIL % 0.2 % (0.0-4.0); HEMOGLOBIN 7.5 GM/DL (13.0-17.0); LYMPH % 7.4 % (9.0-44.0); LYMPHOCYTE # 1.3 TH/MM3 (1.0-4.8); MEAN CELL VOLUME 94.3 FL (80.0-100.0); MEAN CORPUSCULAR HEMOGLOBIN 30.5 PG (27.0-34.0); MEAN CORPUSCULAR HGB CONC 32.3 % (32.0-36.0); MEAN PLATELET VOLUME 11.8 FL (7.0-11.0); MONO % 4.5 % (0.0-8.0); MONOCYTE # 0.8 TH/MM3 (0-0.9); NEUT % 86.4 % (16.0-70.0); PLATELET COUNT 209 TH/MM3 (150-450); RED BLOOD COUNT 2.44 MIL/MM3 (4.50-5.90); RED CELL DISTRIBUTION WIDTH 14.7 % (11.6-17.2); WHITE BLOOD COUNT 18.1 TH/MM3 (4.0-11.0)
[2017-06-05 04:42] LABS: BICARBONATE 25.4 MEQ/L (21.0-32.0); CALCIUM 7.4 MG/DL (8.5-10.1); CREATININE 2.56 MG/DL (0.60-1.30)
[2017-06-05 05:08] LABS: CALCIUM-PROTEIN CORRECTED 8.5 MG/DL (8.5-10.1); TOTAL PROTEIN 5.2 GM/DL (6.4-8.2)
[2017-06-05] MEDS: fentaNYL DRIP 250 ML IV PRN ×2 (06:57→18:03)
[2017-06-05] MEDS: SULFAMETHOXAZOLE-TRIMETHOPRIM DS 800-160 MG TAB PO SCH (07:00)
[2017-06-05] MEDS: MEROPENEM INJ 1,000 MG in SODIUM CHLORIDE 0.9% INJ 100 ML IV SCH ×2 (07:00→17:18)
[2017-06-05 07:17] LABS: BANDS 32 % (0-6); BASOPHILS 2 % (0-2); CORRECTED NUCLEATED RBC 2 /100 WBC (0-0); LYMPHOCYTES 5 % (9-44); MONOCYTES 3 % (0-8); NEUTROPHIL # MANUAL DIFF 16.3 TH/MM3 (1.8-7.7); NUCLEATED RED BLOOD CELL 2 (0-0); OVALOCYTES 1+ (NORMAL); POLYS (SEG NEUTROPHILS) 58 % (16-70)
[2017-06-05] MEDS: RESP: SODIUM CHLORIDE 3% 4 ML NEB NEB SCH ×2 (07:53→20:15)
[2017-06-05] MEDS: CHLORHEXIDINE 0.12% (ORAL KIT) 15 ML CUP MT SCH ×2 (07:54→20:55)
[2017-06-05] MEDS: EPOPROSTENOL NEB SOLUTION 50 NG/KG/MIN 100 ML NEB SCH ×4 (08:00→17:18)
[2017-06-05] MEDS: ARTIFICIAL TEARS OPTH OINT 3.5 APPLIC/3.5 GM TUBO EACH EYE SCH ×2 (08:36→20:56)
[2017-06-05] MEDS: FAMOTIDINE 20 MG/2 ML VIAL IV PUSH SCH ×2 (08:37→20:50)
[2017-06-05] MEDS: SODIUM CHLORIDE 0.9% FLUSH 10 ML FLUSH IV FLUSH SCH (08:37)
[2017-06-05] MEDS: DOCUSATE SODIUM 50 MG/SENNA 8.6 MG TAB PO SCH ×2 (08:37→20:54)
[2017-06-05] MEDS: CLOPIDOGREL 75 MG TAB NG SCH (08:37)
[2017-06-05] MEDS: levETIRAcetam INJ 500 MG in SODIUM CHLORIDE 0.9% INJ 100 ML IV SCH (08:37)
[2017-06-05] MEDS: BISACODYL 10 MG SUPP RECTAL SCH (08:38)
[2017-06-05] MEDS: ENOXAPARIN SODIUM 40 MG/0.4 ML SYRINGE SQ SCH ×2 (08:39→09:00)
[2017-06-05] MEDS: BACITRACIN TOP OINT 15 GM TUBE TOPICAL SCH (08:39)
[2017-06-05] MEDS ORDERED: PHARMACY ORDERED LAB ONE (08:45)
[2017-06-05] MEDS ORDERED: ALBUMIN 25% INJ 100 ML IV ONE (09:30)
[2017-06-05] MEDS ORDERED: SODIUM CHLOR 0.9% 250 ML INJ 250 ML IV ONE (09:30)
[2017-06-05] MEDS: SODIUM CHLOR 0.9% 1000 ML INJ 1,000 ML IV SCH ×3 (09:31→21:50)
[2017-06-05] MEDS: NOREPINEPHRINE INJ 16 MG in SODIUM CHLOR 0.9% 250 ML INJ 234 ML IV PRN ×2 (09:32→20:59)
[2017-06-05] MEDS: WATER IV PRN ×2 (09:32)
[2017-06-05] MEDS: MIDAZOLAM IV PRN ×2 (09:32)
[2017-06-05] MEDS: DEXTROSE 5% IV PRN ×2 (09:32)
[2017-06-05] MEDS: DEXTROSE 5% IN WATE 1000ML INJ 1,000 ML IV SCH (10:44)
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
--- NOTE | 2017-06-05 13:30 | HHI.IDPN ---
Subjective Subjective Remarks slightly better after a roiugh night Yday went on 100% on biphasic, now down to 70% On biphsic, 100% On pressors, levaphed was at 25 mcg, now down to 20 mcgs still hypotensive Fever 101.3 max UOP sl;lihgtly dropped diuresis on hold now since cretinine went up to 2.67 Has NG now Repeat BC negative @ 24 hrs 05/09 sputum clx is P, G stain w/o orgaoisms Last night pt got a new L side CT for Acute left-sided pneumothorax with tension physiology and emergent re-itubation Antibiotics meropenem bactrim - on hold lebvaquine zyvox vanco micafungin Allergies: Coded Allergies: No Allergy Information Available (Unverified , 05/23/17) unable to obtain Objective . Vital Signs Date Time Temp Pulse Resp B/P (MAP) Pulse Ox O2 Delivery O2 Flow Rate FiO2 06/05/17 12:47 97 Ventilator 70 06/05/17 12:44 100.6 88 14 125/53 98 06/05/17 12:00 98 Ventilator 75 06/05/17 11:00 96 80 06/05/17 09:32 93 99/48 06/05/17 07:47 94 85 06/05/17 04:04 90 80 06/05/17 04:00 80 06/05/17 04:00 103 06/05/17 04:00 101.3 103 14 102/42 (62) 92 06/05/17 02:00 103 06/05/17 00:46 91 85 06/05/17 00:00 99.9 110 14 101/42 (61) 90 06/05/17 00:00 85 06/05/17 00:00 110 06/04/17 22:11 98 107/48 06/04/17 22:00 98 06/04/17 20:00 99.7 107 13 91/46 (61) 96 06/04/17 20:00 107 06/04/17 20:00 80 06/04/17 19:27 93 80 06/04/17 18:30 101 91/44 06/04/17 17:30 101 92/43 06/04/17 17:15 100 95/48 06/04/17 17:00 100 93/47 06/04/17 16:45 100 98/49 06/04/17 16:15 101 92/52 06/04/17 16:00 99.7 101 13 100/6 (37) 97 06/04/17 16:00 101 95/48 06/04/17 16:00 100 06/04/17 15:58 96 100 06/04/17 13:49 102 102/59 06/05/17 06/05/17 06/06/17 15:00 23:00 07:00 Intake Total 100 ml Balance 100 ml Intake IV Total 100 ml . Laboratory Tests Test 06/04/17 04:15 06/05/17 04:05 White Blood Count 17.7 TH/MM3 18.1 TH/MM3 Red Blood Count 2.41 MIL/MM3 2.44 MIL/MM3 Hemoglobin 7.4 GM/DL 7.5 GM/DL Hematocrit 22.7 % 23.0 % Mean Corpuscular Volume 94.0 FL 94.3 FL Mean Corpuscular Hemoglobin 30.5 PG 30.5 PG Mean Corpuscular Hemoglobin Concent 32.5 % 32.3 % Red Cell Distribution Width 15.0 % 14.7 % Platelet Count 141 TH/MM3 209 TH/MM3 Mean Platelet Volume 12.2 FL 11.8 FL Neutrophils (%) (Auto) 90.0 % 86.4 % Lymphocytes (%) (Auto) 4.8 % 7.4 % Monocytes (%) (Auto) 4.4 % 4.5 % Eosinophils (%) (Auto) 0.2 % 0.2 % Basophils (%) (Auto) 0.6 % 1.5 % Neutrophils # (Auto) 15.9 TH/MM3 15.7 TH/MM3 Lymphocytes # (Auto) 0.9 TH/MM3 1.3 TH/MM3 Monocytes # (Auto) 0.8 TH/MM3 0.8 TH/MM3 Eosinophils # (Auto) 0.0 TH/MM3 0.0 TH/MM3 Basophils # (Auto) 0.1 TH/MM3 0.3 TH/MM3 CBC Comment AUTO DIFF AUTO DIFF Differential Total Cells Counted 100 100 Neutrophils % (Manual) 67 % 58 % Band Neutrophils % 22 % 32 % Lymphocytes % 6 % 5 % Monocytes % 4 % 3 % Neutrophils # (Manual) 15.9 TH/MM3 16.3 TH/MM3 Myelocytes 1 % Nucleated Red Blood Cells 2 /100 WBC 2 /100 WBC Differential Comment FINAL DIFF MANUAL FINAL DIFF MANUAL Platelet Estimate LOW NORMAL Platelet Morphology Comment ENLARGED ENLARGED Ovalocytes 1+ 1+ Basophils % 2 % Laboratory Tests Test 06/03/17 15:10 06/04/17 04:15 06/05/17 04:05 Random Cortisol 28.0 MCG/DL Blood Urea Nitrogen 48 MG/DL 79 MG/DL Creatinine 1.51 MG/DL 2.56 MG/DL Random Glucose 188 MG/DL 187 MG/DL Total Protein 4.7 GM/DL 5.2 GM/DL Albumin 1.4 GM/DL Calcium Level 7.3 MG/DL 7.4 MG/DL Alkaline Phosphatase 99 U/L Aspartate Amino Transf (AST/SGOT) 47 U/L Alanine Aminotransferase (ALT/SGPT) 40 U/L Total Bilirubin 0.5 MG/DL Sodium Level 155 MEQ/L 151 MEQ/L Potassium Level 4.0 MEQ/L 4.8 MEQ/L Chloride Level 118 MEQ/L 115 MEQ/L Carbon Dioxide Level 32.3 MEQ/L 25.4 MEQ/L Anion Gap 5 MEQ/L 11 MEQ/L Estimat Glomerular Filtration Rate 48 ML/MIN 26 ML/MIN Protein Corrected Calcium 8.7 MG/DL 8.5 MG/DL Microbiology Date/Time Source Procedure Growth Status 06/03/17 19:03 Blood Peripheral Aerobic Blood Culture - Preliminary NO GROWTH IN 2 DAYS Resulted 06/03/17 19:03 Blood Peripheral Anaerobic Blood Culture - Preliminary NO GROWTH IN 2 DAYS Resulted 06/03/17 18:58 Blood Peripheral Aerobic Blood Culture - Preliminary NO GROWTH IN 2 DAYS Resulted 06/03/17 18:58 Blood Peripheral Anaerobic Blood Culture - Preliminary NO GROWTH IN 2 DAYS Resulted 06/04/17 08:40 Sputum Endotracheal Gram Stain - Final Resulted 06/04/17 08:40 Sputum Endotracheal Sputum Culture Pending Resulted Imaging Last Impressions Chest X-Ray 06/05/17 0000 Signed Impressions: Service Date/Time: June 00:21 - CONCLUSION: 1. Interval placement of new pigtail left apical chest tube with small residual left-sided pneumothorax, significantly improved from prior exam. Praveen Bach MD Abdomen X-Ray 05/27/17 0000 Signed Impressions: Service Date/Time: Saturday, May 27, 2017 03:57 - CONCLUSION: The Dobbhoff feeding tube remains located in the left lower lobe bronchus. Servando Mccabe MD Upper Extremity Ultrasound 05/26/17 0000 Signed Impressions: Service Date/Time: Friday, May 26, 2017 08:35 - CONCLUSION: 1. DVT involving the right brachial vein with superficial venous thrombus involving the left cephalic vein. Both are occlusive. Michael Santoro Jr., MD Lower Extremity Ultrasound 05/26/17 0000 Signed Impressions: Service Date/Time: Friday, May 26, 2017 08:18 - CONCLUSION: 1. No DVT identified. Jacob Hernandez MD CT Angiography 05/26/17 0000 Signed Impressions: Service Date/Time: Friday, May 26, 2017 10:47 - CONCLUSION: 1. No large or central pulmonary embolus identified. 2. Bilateral pleural effusions and consolidative changes at both lung bases. Jacob Hernandez MD Abdomen/Pelvis CT 05/26/17 0000 Signed Impressions: Service Date/Time: Friday, May 26, 2017 10:47 - CONCLUSION: 1. Progressive dense bilateral airspace consolidation at the lung bases likely reflecting contusion/atelectasis. 2. Redemonstration of multiple left transverse process fractures and T12 superior plate compression fracture with evolving left psoas hematoma. 3. Indeterminate density left adrenal mass. This may be further evaluated on an outpatient basis with MRI adrenal mass protocol as indicated. 4. Additional stable ancillary findings, as above. Praveen Bach MD Head CT 05/25/17 0600 Signed Impressions: Service Date/Time: Thursday, May 25, 2017 04:01 - CONCLUSION: 1. Evolving left subdural hematoma, left frontal, temporal lobe contusions and subarachnoid hemorrhage. No new intracranial hemorrhage is identified. Jony Juarez MD Thoracic Spine CT [id number]/[id number] Signed Impressions: Service Date/Time: Tuesday, May 23, 2017 19:00 - CONCLUSION: 1. Mild superior endplate compression fracture of T12 without retropulsion. No canal stenosis. No other fractures identified in the thoracic spine. Joyn Juarez MD Pelvis X-Ray [id number] Signed Impressions: Service Date/Time: Tuesday, May 23, 2017 18:29 - CONCLUSION: 1. No acute findings. Jony Juarez MD Maxillofacial CT [id number]/[id number] Signed Impressions: Service Date/Time: Tuesday, May 23, 2017 18:53 - CONCLUSION: 1. No acute facial bone fracture identified. Jony Juarez MD Lumbar Spine CT 05/23/[id number] Signed Impressions: Service Date/Time: Tuesday, May 23, 2017 19:00 - CONCLUSION: 1. Mild superior endplate compression fracture of T12 without retropulsion. 2. Left-sided transverse process fractures from L1-L4. 3. Focally advanced degenerative change at L4-5 with minimal degenerative retrolisthesis. Jony Juarez MD Chest CT 05/23/[id number] Signed Impressions: Service Date/Time: Tuesday, May 23, 2017 19:00 - CONCLUSION: 1. Mild superior endplate compression fracture of T12. 2. Right clavicle fracture. 3. Mild lung contusions with dependent atelectasis or aspiration. 4. Endotracheal tube and nasogastric tube in good position. Mild coronary calcifications. 5. Negative for traumatic aortic injury. Jony Juarez MD Cervical Spine CT 05/23/[id number] Signed Impressions: Service Date/Time: Tuesday, May 23, 2017 18:53 - CONCLUSION: 1. No acute cervical spine fracture identified. Nondisplaced right occipital bone fracture. Jony Juarez MD Physical Exam CONSTITUTIONAL/GENERAL: This is an adequately nourished patient,sedated, supine TUBES/LINES/DRAINS: SKIN: No jaundice, rashes, or lesions on visulised areas Multiple abrasions noted HEAD: Atraumatic. Normocephalic. Fce edematous EYES: Non ictreic ENT: Hearing not tested. Oral mucosae moist NECK: no JVD tarch in midline CARDIOVASCULAR: Regular rate and rhythm on monitor. Hypoperfusion signs involving all 4 extremeties B/l hands adn R toes evolving dry gangrene' - more prominent today all fingertips on both hands with evolving dry gangrene changes Both thumbs are spared R foot with weeping necrotic changes: toes 1-5 are wityh dry necrosis L foot with only 23 rd toe having gangremnous changes R knee with necrotic lesion RESPIRATORY/CHEST: Symmetric, respirations. Scattered rhonchi anteriorly to auscultation. B/l CT with serosang fluid GASTROINTESTINAL: soft moderately distended no BS audible no hepatosplenomegaly rectal tube in place - with small amount of liquid stool GENITOURINARY: Sanabria catheter in place with clear yellow urine MUSCULOSKELETAL: Extremities without clubbing + edema , at least 3 + + cyanosis, duskiness of toes and fingers tips anf gangene changes + edema. 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 new infx with more resistant organisms s/p 2 CT placement He has life threatening PNA and sepsis Perfusion related damage noted in all 4 extremeties : probably will demarkate in the next days; pt will have some tissue loss fingers/toes New hypotension and fever - - probably new sepsis - sourse is likely PNA Remains very criticval and unstable, though trend to imrove in the last 12 hrs - blood clx remain negartive Worsenin ARF cont meropenem will hold bactrim for now 2/2 ARF cont IV levaquine cont zyvox dc IV vanco cont micafungin fu BC fu sputum clx dw RN dw pharmacist Irma Ayon MD Jun 05, 2017 13:30
[2017-06-05] MEDS: HEPARIN SODIUM - SQ 10,000 UNITS/ML VIAL SQ SCH ×2 (13:36→21:51)
[2017-06-05] MEDS: FAT EMULSION 20% INJ 250 ML (@10 mls/hr) IV-CENTRAL SCH (20:53)
[2017-06-05] MEDS: DEXTROSE IV SCH ×3 (20:54)
[2017-06-05] MEDS: MULTIVITAMIN IV SCH ×3 (20:54)
[2017-06-05] MEDS: MICAFUNGIN INJ 150 MG in SODIUM CHLORIDE 0.9% INJ 100 ML IV SCH (20:54)
[2017-06-05] MEDS: FOLIC ACID IV SCH ×3 (20:54)
[2017-06-05] MEDS: [UNRECOGNIZED DRUG - OTHER] IV SCH ×3 (20:54)
[2017-06-06] VITALS (18 sets, daily range): BP systolic 99–143; BP diastolic 41–56; PULSE 76–94; RESP 14–24; TEMP 97.7–100.8; O2SAT 90–100
[2017-06-06] MEDS: LINEZOLID 600 MG PREMIX 300 ML IV SCH ×2 (01:38→12:06)
[2017-06-06] MEDS: CHLORHEXIDINE GLUCONATE 2 % 1 PACK (2 CLOTHS) TOP SCH (04:00)
[2017-06-06 04:28] LABS: AUTOMATED NEUTROPHIL # 13.7 TH/MM3 (1.8-7.7); BASOPHIL # 0.1 TH/MM3 (0-0.2); BASOPHIL % 0.7 % (0.0-2.0); EOSINOPHIL # 0.1 TH/MM3 (0-0.4); EOSINOPHIL % 0.7 % (0.0-4.0); HEMATOCRIT 21.5 % (39.0-51.0); HEMOGLOBIN 7.1 GM/DL (13.0-17.0); LYMPH % 6.2 % (9.0-44.0); MEAN CELL VOLUME 91.5 FL (80.0-100.0); MEAN CORPUSCULAR HEMOGLOBIN 30.4 PG (27.0-34.0); MEAN CORPUSCULAR HGB CONC 33.2 % (32.0-36.0); MEAN PLATELET VOLUME 11.6 FL (7.0-11.0); MONO % 5.5 % (0.0-8.0); MONOCYTE # 0.9 TH/MM3 (0-0.9); NEUT % 86.9 % (16.0-70.0); PLATELET COUNT 235 TH/MM3 (150-450); RED BLOOD COUNT 2.35 MIL/MM3 (4.50-5.90); RED CELL DISTRIBUTION WIDTH 15.2 % (11.6-17.2); WHITE BLOOD COUNT 15.8 TH/MM3 (4.0-11.0)
[2017-06-06 05:16] LABS: BICARBONATE 24.9 MEQ/L (21.0-32.0); CALCIUM 7.4 MG/DL (8.5-10.1); CREATININE 3.94 MG/DL (0.60-1.30); MAGNESIUM 2.7 MG/DL (1.5-2.5); PHOSPHORUS 6.5 MG/DL (2.5-4.9)
[2017-06-06] MEDS: INSULIN NovoLIN REGULAR SUPPLEMENTAL SCALE SQ SCH ×6 (05:39→20:00)
[2017-06-06] MEDS: MEROPENEM INJ 1,000 MG in SODIUM CHLORIDE 0.9% INJ 100 ML IV SCH ×2 (05:42→17:53)
[2017-06-06] MEDS: HEPARIN SODIUM - SQ 10,000 UNITS/ML VIAL SQ SCH ×3 (05:43→21:47)
[2017-06-06 07:53] LABS: BANDS 9 % (0-6); LYMPHOCYTES 4 % (9-44); MONOCYTES 2 % (0-8); MYELOCYTES 2 % (0-0); NEUTROPHIL # MANUAL DIFF 14.7 TH/MM3 (1.8-7.7); POLYS (SEG NEUTROPHILS) 82 % (16-70)
[2017-06-06 07:54] LABS: OVALOCYTES 1+ (NORMAL)
--- NOTE | 2017-06-06 07:56 | HHI.PR ---
Neuropsych Emotional Emotional: UnabletoAssess: Emotional, Anxious/Fearful, Depressed/Sad, Hostile/ Resentful, Irritable/Angry/Frustrate, Labile, Constricted/Blunted Behavior Behavior: Intact: Impulsive/Agitated, Unable to Asses: Behavior, Coping/ Acceptance, Cooperative w/ Treatment, Motivation, Frustration Tolerance/[place], Suicidal/Homicidal Risk Cognitive Cognitive: Unable to Asses: Cognitive, Attention/Concentration, Confused/ Orientation, Insight/Awareness, Judgement/Problem-Solving, Memory Psychosocial Psychosocial: Intact: Psychosocial, Family/Other Adjustment, Realistic Expectation, Unable to Asses: Self-Esteem/Confidence Progress Notes/Response to Tx Contents of Sessions: Adjustment, Level of Consciousness Time with Patient: 15 minutes Premorbid psychological status Premorbid Cognitive, Emotional and Behavioral Status: Unable to Assess. The patient has high school years of education and an unknown work history prior to this injury. The patient has no known prior psychiatric difficulties, as described above. Substance abuse history is unknown. Behavioral Reactions of Patient and Family/Support System: Unable to Assess. The patients family is experiencing ongoing issues of adjustment given the nature of the injury, and this aspect of recovery will require ongoing monitoring. Emotional/Behavioral Status of Patient and Family/Support System: Unable to Assess. Pertinent issues, if appropriate to this patients clinical care, are described in detail above. Maximizing acute care outcome It is recommended that the patient be monitored for emergent behavioral impulsivity as the medical condition evolves. This patients neuropathological challenges may limit his rehabilitation potential going forward, and these challenges will require specialized therapeutic skills to maximize outcome. Additionally, the patients family is experiencing ongoing issues of adjustment given the traumatic nature of the injury, and they may benefit from ongoing psychological assistance. At this point in the recovery process, the patient does not have cognitive capacity as the patient is unable to understand a situation and its likely consequences, nor is he able to manipulate information rationally. Cognitive capacity will be assessed throughout the recovery process. Anticipated Problems Ongoing areas of concern will include behavioral impulsivity, lack of insight and judgment, which is expected to improve with time and treatment. Presently , the patient is intubated and sedated. Given the severity of the patient's injuries it is my clinical opinion that this patient will be unable to return to any type of productive employment for at least one year, perhaps longer and likely never. This patient is not considered safe to discharge home without supervision. Treatment Plan This clinician will continue to follow with you throughout the course of this patients critical care treatment, and I will be available to meet with the patients family/support system to facilitate their understanding and the ongoing care of their family member. The goals of neuropsychological intervention shall be both educational and supportive to the family/support system as is deemed clinically appropriate. [facility] Level: I:No response-total assistance Impression 56 year old male s/p TBI 2T [facility] [place] on 05/23/2017. Diagnosis: (1) Major neurocognitive disorder as late effect of traumatic brain injury without behavioral disturbance Progress Note Narrative PTD 14. The patient remains intubated and sedated, with significant respiratory challenges. There are no neurobehavioral issues, no agitation/ restlessness. He remains [place]. I will follow. Jimenez Tiwari PhD Jun 06, 2017 7:56 am
[2017-06-06] MEDS: CHLORHEXIDINE 0.12% (ORAL KIT) 15 ML CUP MT SCH ×2 (08:00→20:00)
[2017-06-06] MEDS: RESP: SODIUM CHLORIDE 3% 4 ML NEB NEB SCH ×2 (08:00→20:35)
[2017-06-06] MEDS: EPOPROSTENOL NEB SOLUTION 50 NG/KG/MIN 100 ML NEB SCH ×6 (08:00→16:55)
[2017-06-06 08:13] LABS: CALCIUM-PROTEIN CORRECTED 8.5 MG/DL (8.5-10.1); TOTAL PROTEIN 5.1 GM/DL (6.4-8.2)
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
[2017-06-06] MEDS: FAMOTIDINE 20 MG/2 ML VIAL IV PUSH SCH ×2 (08:46→21:48)
[2017-06-06] MEDS: BISACODYL 10 MG SUPP RECTAL SCH (08:46)
[2017-06-06] MEDS: CLOPIDOGREL 75 MG TAB NG SCH (08:47)
[2017-06-06] MEDS: SODIUM CHLORIDE 0.9% FLUSH 10 ML FLUSH IV FLUSH SCH (08:47)
[2017-06-06] MEDS: DOCUSATE SODIUM 50 MG/SENNA 8.6 MG TAB PO SCH ×2 (08:47→21:48)
[2017-06-06] MEDS: ARTIFICIAL TEARS OPTH OINT 3.5 APPLIC/3.5 GM TUBO EACH EYE SCH ×2 (09:00→21:00)
[2017-06-06] MEDS: BACITRACIN TOP OINT 15 GM TUBE TOPICAL SCH (09:02)
[2017-06-06] MEDS ORDERED: SODIUM CHLOR 0.9% 250 ML INJ 250 ML IV ONE (09:15)
[2017-06-06] MEDS: fentaNYL DRIP 250 ML IV PRN ×3 (09:38→23:45)
[2017-06-06] MEDS: SODIUM CHLOR 0.9% 1000 ML INJ 1,000 ML IV SCH ×4 (09:42→19:01)
[2017-06-06] MEDS: MIDAZOLAM IV PRN ×2 (09:53)
[2017-06-06] MEDS: DEXTROSE 5% IV PRN ×2 (09:53)
[2017-06-06] MEDS: WATER IV PRN ×2 (09:53)
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
[2017-06-06] MEDS ORDERED: LEVOFLOXACIN 750 MG PREMIX INJ 150 ML IV SCH (13:00)
[2017-06-06 13:45] LABS: MAGNESIUM 2.6 MG/DL (1.5-2.5); PHOSPHORUS 6.5 MG/DL (2.5-4.9)
[2017-06-06 20:16] LABS: HEMATOCRIT 24.5 % (39.0-51.0); HEMOGLOBIN 8.2 GM/DL (13.0-17.0)
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
[2017-06-06] MEDS: NOREPINEPHRINE INJ 16 MG in SODIUM CHLOR 0.9% 250 ML INJ 234 ML IV PRN (21:00)
[2017-06-06] MEDS: MICAFUNGIN INJ 150 MG in SODIUM CHLORIDE 0.9% INJ 100 ML IV SCH (21:47)
[2017-06-07] VITALS (12 sets, daily range): BP systolic 71–115; BP diastolic 39–48; PULSE 88–112; RESP 22–37; TEMP 99–101.8; O2SAT 67–90
[2017-06-07] MEDS: LINEZOLID 600 MG PREMIX 300 ML IV SCH (00:41)
[2017-06-07] MEDS: SODIUM CHLOR 0.9% 1000 ML INJ 1,000 ML IV SCH ×2 (00:42→13:57)
[2017-06-07] MEDS: INSULIN NovoLIN REGULAR SUPPLEMENTAL SCALE SQ SCH ×4 (04:00→12:00)
[2017-06-07] MEDS: CHLORHEXIDINE GLUCONATE 2 % 1 PACK (2 CLOTHS) TOP SCH (04:00)
[2017-06-07] MEDS: HEPARIN SODIUM - SQ 10,000 UNITS/ML VIAL SQ SCH ×2 (04:56→13:57)
[2017-06-07] MEDS: MEROPENEM INJ 1,000 MG in SODIUM CHLORIDE 0.9% INJ 100 ML IV SCH (05:01)
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
[2017-06-07 06:06] LABS: AUTOMATED NEUTROPHIL # 14.5 TH/MM3 (1.8-7.7); BASOPHIL # 0.1 TH/MM3 (0-0.2); BASOPHIL % 0.4 % (0.0-2.0); EOSINOPHIL % 0.3 % (0.0-4.0); HEMOGLOBIN 8.6 GM/DL (13.0-17.0); LYMPHOCYTE # 0.7 TH/MM3 (1.0-4.8); MEAN CORPUSCULAR HEMOGLOBIN 30.3 PG (27.0-34.0); MEAN CORPUSCULAR HGB CONC 33.3 % (32.0-36.0); MEAN PLATELET VOLUME 11.3 FL (7.0-11.0); MONO % 6.5 % (0.0-8.0); MONOCYTE # 1.1 TH/MM3 (0-0.9); NEUT % 88.8 % (16.0-70.0); PLATELET COUNT 270 TH/MM3 (150-450); RED BLOOD COUNT 2.85 MIL/MM3 (4.50-5.90); RED CELL DISTRIBUTION WIDTH 15.7 % (11.6-17.2); WHITE BLOOD COUNT 16.3 TH/MM3 (4.0-11.0)
[2017-06-07 06:37] LABS: BICARBONATE 24.2 MEQ/L (21.0-32.0); CALCIUM 7.4 MG/DL (8.5-10.1); CREATININE 5.12 MG/DL (0.60-1.30)
[2017-06-07 07:03] LABS: CALCIUM-PROTEIN CORRECTED 7.9 MG/DL (8.5-10.1); TOTAL PROTEIN 6.1 GM/DL (6.4-8.2)
[2017-06-07 07:52] LABS: BANDS 24 % (0-6); BASOPHILS 1 % (0-2); LYMPHOCYTES 1 % (9-44); METAMYELOCYTES 2 % (0-1); MONOCYTES 4 % (0-8); NEUTROPHIL # MANUAL DIFF 15.3 TH/MM3 (1.8-7.7); POLYS (SEG NEUTROPHILS) 68 % (16-70)
[2017-06-07] MEDS: fentaNYL DRIP 250 ML IV PRN (08:06)
[2017-06-07] MEDS ORDERED: TERBUTALINE INJ 1 MG/ML AMP SQ PRN (08:15)
[2017-06-07] MEDS ORDERED: PHENYLEPHRINE HCL 10 MG/ML VIAL ONE ×2 (08:17→08:23)
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
[2017-06-07] MEDS: NOREPINEPHRINE INJ 16 MG in SODIUM CHLOR 0.9% 250 ML INJ 234 ML IV PRN (08:23)
[2017-06-07] MEDS: PHENYLEPHRINE INJ 80 MG in SODIUM CHLORID 0.9% 500 ML INJ 492 ML IV PRN ×4 (08:30→14:16)
[2017-06-07] MEDS: RESP: SODIUM CHLORIDE 3% 4 ML NEB NEB SCH (08:38)
[2017-06-07] MEDS: SODIUM CHLORIDE 0.9% FLUSH 10 ML FLUSH IV FLUSH SCH (08:50)
[2017-06-07] MEDS: BACITRACIN TOP OINT 15 GM TUBE TOPICAL SCH (09:00)
[2017-06-07] MEDS: ARTIFICIAL TEARS OPTH OINT 3.5 APPLIC/3.5 GM TUBO EACH EYE SCH (09:00)
[2017-06-07] MEDS: CLOPIDOGREL 75 MG TAB NG SCH ×2 (09:00→09:35)
[2017-06-07] MEDS ORDERED: VASOPRESSIN INJ 40 UNITS in DEXTROSE 5% IN WATER 100ML INJ 98 ML IV SCH ×2 (09:00)
[2017-06-07] MEDS ORDERED: PHENYLEPHRINE INJ 80 MG in SODIUM CHLOR 0.9% 1000 ML INJ 1,000 ML IV PRN (09:00)
[2017-06-07] MEDS: DOCUSATE SODIUM 50 MG/SENNA 8.6 MG TAB PO SCH (09:00)
[2017-06-07] MEDS: FAMOTIDINE 20 MG/2 ML VIAL IV PUSH SCH ×2 (09:00→09:35)
[2017-06-07] MEDS: BISACODYL 10 MG SUPP RECTAL SCH (09:00)
[2017-06-07] MEDS: CHLORHEXIDINE 0.12% (ORAL KIT) 15 ML CUP MT SCH (09:37)
[2017-06-07] MEDS: EPINEPHrine 2 MG/D5W 250 ML IV PRN ×4 (10:09→12:53)
[2017-06-07] MEDS ORDERED: SODIUM BICARBONATE 8.4% INJ 150 MEQ in DEXTROSE 5% IN WATE 1000ML INJ 850 ML IV SCH ×2 (11:00)
[2017-06-07 11:02] LABS: BICARBONATE 22.9 MEQ/L (21.0-32.0); CALCIUM 7.6 MG/DL (8.5-10.1); CREATININE 5.6 MG/DL (0.60-1.30)
[2017-06-07] MEDS: EPOPROSTENOL NEB SOLUTION 50 NG/KG/MIN 100 ML NEB SCH ×2 (11:07)
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
[2017-06-07] MEDS ORDERED: INSULIN HUMAN REGULAR 1,000 UNITS/10 ML VIAL IV PUSH ONE (11:30)
[2017-06-07] MEDS ORDERED: DEXTROSE 50% IN WATER 50 ML SYRINGE IV PUSH ONE (11:30)
[2017-06-07] MEDS ORDERED: SODIUM BICARBONATE 8.4% INJ 50 MEQ/50 ML SYR IV PUSH ONE (11:30)
[2017-06-07] MEDS ORDERED: CALCIUM CHLORIDE 10% SOLN 1 GRAM/10 ML SYR IV PUSH ONE (11:30)
[2017-06-07] MEDS ORDERED: SODIUM POLYSTYRENE SULFONATE SUSP 15 GM/60 ML CUP PO ONE (11:30)
[2017-06-07] MEDS ORDERED: VANCOMYCIN INJ 1,000 MG in SODIUM CHLOR 0.9% 250 ML INJ 250 ML IV ONE (13:45)
--- NOTE | 2017-06-07 13:45 | HHI.IDPN ---
Subjective Subjective Remarks pt doing extremely poor s/p code - asystoly Maxed out on vent maxed out on pressors and BP still 80s/40s No urine output Fever up to 101.8 Antibiotics meropenem lebvaquine zyvox micafungin Allergies: Coded Allergies: No Allergy Information Available (Unverified , 05/23/17) unable to obtain Objective . Vital Signs Date Time Temp Pulse Resp B/P (MAP) Pulse Ox O2 Delivery O2 Flow Rate FiO2 06/07/17 12:53 109 85/43 06/07/17 12:39 109 86/43 06/07/17 12:00 101.8 111 30 86/44 (58) 70 06/07/17 11:49 68 100 06/07/17 11:07 111 119/56 06/07/17 10:09 101 217/67 06/07/17 10:00 100 06/07/17 08:50 114 88/46 06/07/17 08:45 100 06/07/17 08:30 113 100/46 06/07/17 08:30 114 96/47 06/07/17 08:30 114 99/43 06/07/17 08:30 70 100 06/07/17 08:23 114 108/48 06/07/17 08:00 101.3 112 37 84/45 (58) 68 06/07/17 07:20 100 06/07/17 04:13 88 100 06/07/17 04:00 100 06/07/17 04:00 99.9 100 22 115/48 (70) 88 06/07/17 04:00 100 06/07/17 01:10 90 80 06/07/17 00:00 88 06/07/17 00:00 99.0 88 22 114/44 (67) 90 06/07/17 00:00 85 06/06/17 21:00 92 105/43 06/06/17 20:30 92 70 06/06/17 20:00 89 06/06/17 20:00 70 06/06/17 20:00 98.8 89 18 108/45 (66) 92 06/06/17 17:46 90 108/46 06/06/17 17:14 90 70 06/06/17 16:00 97.9 89 21 125/55 (78) 91 06/06/17 16:00 89 06/06/17 16:00 75 06/06/17 13:49 97.7 88 18 111/47 93 06/07/17 06/07/17 06/08/17 15:00 23:00 07:00 Intake Total 632 ml Balance 632 ml Intake IV Total 442 ml Other 190 ml . Laboratory Tests Test 06/06/17 04:10 06/06/17 19:50 06/07/17 05:15 White Blood Count 15.8 TH/MM3 16.3 TH/MM3 Red Blood Count 2.35 MIL/MM3 2.85 MIL/MM3 Hemoglobin 7.1 GM/DL 8.2 GM/DL 8.6 GM/DL Hematocrit 21.5 % 24.5 % 26.0 % Mean Corpuscular Volume 91.5 FL 91.0 FL Mean Corpuscular Hemoglobin 30.4 PG 30.3 PG Mean Corpuscular Hemoglobin Concent 33.2 % 33.3 % Red Cell Distribution Width 15.2 % 15.7 % Platelet Count 235 TH/MM3 270 TH/MM3 Mean Platelet Volume 11.6 FL 11.3 FL Neutrophils (%) (Auto) 86.9 % 88.8 % Lymphocytes (%) (Auto) 6.2 % 4.0 % Monocytes (%) (Auto) 5.5 % 6.5 % Eosinophils (%) (Auto) 0.7 % 0.3 % Basophils (%) (Auto) 0.7 % 0.4 % Neutrophils # (Auto) 13.7 TH/MM3 14.5 TH/MM3 Lymphocytes # (Auto) 1.0 TH/MM3 0.7 TH/MM3 Monocytes # (Auto) 0.9 TH/MM3 1.1 TH/MM3 Eosinophils # (Auto) 0.1 TH/MM3 0.0 TH/MM3 Basophils # (Auto) 0.1 TH/MM3 0.1 TH/MM3 CBC Comment AUTO DIFF AUTO DIFF Differential Total Cells Counted 100 100 Neutrophils % (Manual) 82 % 68 % Band Neutrophils % 9 % 24 % Lymphocytes % 4 % 1 % Monocytes % 2 % 4 % Eosinophils % 1 % Neutrophils # (Manual) 14.7 TH/MM3 15.3 TH/MM3 Myelocytes 2 % Differential Comment FINAL DIFF MANUAL FINAL DIFF MANUAL Platelet Estimate NORMAL NORMAL Platelet Morphology Comment ENLARGED ENLARGED Ovalocytes 1+ Basophils % 1 % Metamyelocytes 2 % Laboratory Tests Test 06/06/17 04:10 06/07/17 05:15 06/07/17 10:25 Blood Urea Nitrogen 105 MG/DL 117 MG/DL 135 MG/DL Creatinine 3.94 MG/DL 5.12 MG/DL 5.60 MG/DL Random Glucose 184 MG/DL 123 MG/DL 80 MG/DL Total Protein 5.1 GM/DL 6.1 GM/DL Calcium Level 7.4 MG/DL 7.4 MG/DL 7.6 MG/DL Phosphorus Level 6.5 MG/DL Magnesium Level 2.7 MG/DL Sodium Level 149 MEQ/L 146 MEQ/L 152 MEQ/L Potassium Level 4.8 MEQ/L 6.1 MEQ/L 6.5 MEQ/L Chloride Level 114 MEQ/L 113 MEQ/L 111 MEQ/L Carbon Dioxide Level 24.9 MEQ/L 24.2 MEQ/L 22.9 MEQ/L Anion Gap 10 MEQ/L 9 MEQ/L 18 MEQ/L Estimat Glomerular Filtration Rate 16 ML/MIN 12 ML/MIN 11 ML/MIN Protein Corrected Calcium 8.5 MG/DL 7.9 MG/DL Imaging Las Last Impressions Chest X-Ray 06/07/17 0600 Signed Impressions: Service Date/Time: Wednesday, June 07, 2017 04:19 - CONCLUSION: Significant increase in bilateral mid and lower lung airspace disease with consolidation in the left lower lung and partial consolidation of the right lung. Michael Lucio MD Abdomen X-Ray 05/27/17 0000 Signed Impressions: Service Date/Time: Saturday, May 27, 2017 03:57 - CONCLUSION: The Dobbhoff feeding tube remains located in the left lower lobe bronchus. Servando Mccabe MD Upper Extremity Ultrasound 05/26/17 0000 Signed Impressions: Service Date/Time: Friday, May 26, 2017 08:35 - CONCLUSION: 1. DVT involving the right brachial vein with superficial venous thrombus involving the left cephalic vein. Both are occlusive. Mihcael Santoro Jr., MD Lower Extremity Ultrasound 05/26/17 0000 Signed Impressions: Service Date/Time: Friday, May 26, 2017 08:18 - CONCLUSION: 1. No DVT identified. Jacob Hernandez MD CT Angiography 05/26/17 0000 Signed Impressions: Service Date/Time: Friday, May 26, 2017 10:47 - CONCLUSION: 1. No large or central pulmonary embolus identified. 2. Bilateral pleural effusions and consolidative changes at both lung bases. Jacob Hernandez MD Abdomen/Pelvis CT 05/26/17 0000 Signed Impressions: Service Date/Time: Friday, May 26, 2017 10:47 - CONCLUSION: 1. Progressive dense bilateral airspace consolidation at the lung bases likely reflecting contusion/atelectasis. 2. Redemonstration of multiple left transverse process fractures and T12 superior plate compression fracture with evolving left psoas hematoma. 3. Indeterminate density left adrenal mass. This may be further evaluated on an outpatient basis with MRI adrenal mass protocol as indicated. 4. Additional stable ancillary findings, as above. Praveen Bach MD Head CT 05/25/17 0600 Signed Impressions: Service Date/Time: Thursday, May 25, 2017 04:01 - CONCLUSION: 1. Evolving left subdural hematoma, left frontal, temporal lobe contusions and subarachnoid hemorrhage. No new intracranial hemorrhage is identified. Jony Juarez MD Thoracic Spine CT [id number] Signed Impressions: Service Date/Time: Tuesday, May 23, 2017 19:00 - CONCLUSION: 1. Mild superior endplate compression fracture of T12 without retropulsion. No canal stenosis. No other fractures identified in the thoracic spine. Jony Juarez MD Pelvis X-Ray [id number] Signed Impressions: Service Date/Time: Tuesday, May 23, 2017 18:29 - CONCLUSION: 1. No acute findings. Jony Juarez MD Maxillofacial CT [id number] Signed Impressions: Service Date/Time: Tuesday, May 23, 2017 18:53 - CONCLUSION: 1. No acute facial bone fracture identified. Jony Juarez MD Lumbar Spine CT [id number]/[id number] Signed Impressions: Service Date/Time: Tuesday, May 23, 2017 19:00 - CONCLUSION: 1. Mild superior endplate compression fracture of T12 without retropulsion. 2. Left-sided transverse process fractures from L1-L4. 3. Focally advanced degenerative change at L4-5 with minimal degenerative retrolisthesis. Jony Juarez MD Chest CT [id number]/[id number] Signed Impressions: Service Date/Time: Tuesday, May 23, 2017 19:00 - CONCLUSION: 1. Mild superior endplate compression fracture of T12. 2. Right clavicle fracture. 3. Mild lung contusions with dependent atelectasis or aspiration. 4. Endotracheal tube and nasogastric tube in good position. Mild coronary calcifications. 5. Negative for traumatic aortic injury. Jony Juarez MD Cervical Spine CT [id number] Signed Impressions: Service Date/Time: Tuesday, May 23, 2017 18:53 - CONCLUSION: 1. No acute cervical spine fracture identified. Nondisplaced right occipital bone fracture. Jony Juarez MD Physical Exam CONSTITUTIONAL/GENERAL: This is an adequately nourished patient,sedated, supine TUBES/LINES/DRAINS: SKIN: No jaundice, rashes, or lesions on visulised areas Multiple abrasions noted HEAD: Laceration on the face - some drainage present Fce edematous EYES: + ictreic ENT: Hearing not tested. Oral mucosae moist NECK: no JVD trach in midline CARDIOVASCULAR: Regular rate and rhythm on monitor. Hypoperfusion signs involving all 4 extremeties B/l hands adn R toes evolving dry gangrene' - more prominent today all fingertips on both hands with evolving dry gangrene changes Both thumbs are spared R foot with weeping necrotic changes: toes 1-5 are wityh dry necrosis L foot with only 23 [address] toe having gangremnous changes R knee with necrotic lesion RESPIRATORY/CHEST: Symmetric, respirations. Scattered rhonchi anteriorly to auscultation. Coarse BS B/l CT x 3 with serosang fluid GASTROINTESTINAL: soft moderately distended no BS audible no hepatosplenomegaly rectal tube in place - with small amount of liquid stool GENITOURINARY: Sanabria catheter in place with mininimal cloudy yellow urine - old Massive scrotal edema MUSCULOSKELETAL: Extremities without clubbing + edema , at least 3 + + cyanosis, duskiness of toes and fingers tips anf gangene changes + edema. NEUROLOGICAL:unresponsive PSYCHIATRIC: unable to assess 2/2 clinical condition Assessment & Plan Remarks Assessment and Plan Assessment and Plan sp multitrauma, including [employer] trauma and pulmonary contusions PNA, PSAE , Serratia, Acinetobacter Now growing dill S PSAE and Steno malt R to ceftazidime Bacteremia, high grade - PSAE - resolved Severe sepsis-clincailly resolved SEvere leukopenia : resolved Resp failure, some improvemnt in the last 24 hrs Pt is critical and unstable again from resp standpoint ? new infx with more resistant organisms s/p 2 CT placement He has life threatening PNA and sepsis Perfusion related damage noted in all 4 extremeties : probably will demarkate in the next days; pt will have some tissue loss fingers/toes New hypotension and fever - - probably new sepsis - sourse is likely PNA Remains very criticval and unstable, though trend to imrove in the last 12 hrs - blood clx remain negartive Worsenin ARF - anuric Slightly improved hemodynamically and respiratory soliz, worse renal fnx s/p code. Pt is critical, unstable, prognosis is gracve, unlikely to survive next 24-48 hrs cont meropenem cont to hold bactrim for now 2/2 ARF cont IV levaquine cont zyvox dc IV vanco cont micafungin untill BC final and negative for stephanie repeat BC further renally adjust abx angella RN Irma Tate Dr, MD Jun 07, 2017 13:45
[2017-06-07] MEDS ORDERED: LEVOFLOXACIN 500 MG PREMIX INJ 100 ML IV SCH (14:00)
[2017-06-08] MEDS ORDERED: MEROPENEM INJ 1,000 MG in SODIUM CHLORIDE 0.9% INJ 100 ML IV SCH (06:00)
--- NOTE | 2017-06-08 08:44 | HHI.DS ---
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 and Oral-Synephrine and epinephrine drip I discussed the patient's condition with the at the bedside prior to the code and explained to her that his body with shutting down. She is in complete denial and was at the bedside during the code. After a long discussion with the , she consented to withdrawl of life support due to his grave condition/prognosis. Pt was made a DNR, and was removed from the vent, and given comfort measures. The pt was allowed to naturally and with dignity surrounded by his family measures. Pt was pronounced at 06/07/2017 @ 1524. No response to painful stimuli. No spontaneous respirations. No apical pulse. Asystole confirmed in 2 leads. No corneal reflex. No cough or gag reflex. Nicol Stevenson rest in peace. Pt Condition on Discharge: Deteriorating Martinez Valderrama MD 06/08/17 1140: Discharge Summary CBC/BMP: 06/07/17 0515 06/07/17 1025 Velia Germain Jun 08, 2017 08:44 Martinez Valderrama MD Jun 08, 2017 11:40
--- NOTE | 2017-06-09 08:01 | PD.NP.DS ---
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 The patient was admitted as a Level I trauma with a GCS of 3, combative and moving x 4. Head CT showed left SDH with left to right shift, and SAH and diffuse cerebral swelling. He is referred for baseline neurobehavioral status examination per trauma protocol to assess cognitive, behavioral and emotional aspects of the injury and to provide treatment recommendations. His condition continued to worsen and he on . Past Medical History: Please refer to the patient's history and physical for information concerning the patient's past medical, surgical, and psychiatric histories. Education/Learning Hx: The patient completed high school years of education. There is no report of learning difficulties, grade repetitions or behavioral difficulties. The patient has a solid work history prior to this injury. The patient lived in [place], [place]. Premorbid Cognitive, Emotional and Behavioral Status: Stable. The patient has high school years of education and an unknown work history prior to this injury. The patient has no known prior psychiatric difficulties, as described above. Substance abuse history is unknown. Behavioral Reactions of Patient and Family/Support System: Stable. The patient s family is experiencing ongoing issues of adjustment given the nature of the injury, and this aspect of recovery will require ongoing monitoring. Emotional/Behavioral Status of Patient and Family/Support System: Stable. Pertinent issues, if appropriate to this patients clinical care, are described in detail above. Treatment Interventions: During the course of their acute care stay, this patient and their family/ support system were provided information concerning the neuropsychological aspects of the injury, education regarding course of recovery, and psychological support in the form of counseling with the person served and the family/support system as documented in the neuropsychology service progress notes, as deemed clinically appropriate. Current, Cognitive, Emotional and Behavioral Status: N/A. The patient on 06/07/2017. Impression at Discharge: The cognitive and behavioral status of this patient meets criteria for N/A. The above listed diagnoses are supported by the following clinical criteria: N/ A. Status of Family/Support System Adjustment: N/A. Post Acute Recommendations: N/A. Thank you for the opportunity to assist in this patients care. Jimenez Tiwari, Ph.D., ABPP Board Certified in Clinical Neuropsychology [facility] Board of Professional Psychology [place] Licensed Psychologist #[id number] Jimenez Tiwari PhD Jun 09, 2017 08:01
== END 2017-06-07 18:47 | disposition expired | DRG 963 ==
LOC: NEPI 18:29 → NEDA 19:47 → EDBD 19:47 → N03B 19:56
PROVIDERS: ADMIT Surgery Trauma Surgery; ATTEND Surgery Trauma Surgery
PROC: 5A1955Z Respiratory Ventilation, Greater than 96 Consecutive Hours (ICD-10-PCS; principal; 2017-05-23)
PROC: 0BH17EZ Insertion of Endotracheal Airway into Trachea, Via Natural or Artificial Opening (ICD-10-PCS; 2017-05-23)
PROC: 0HQ0XZZ Repair Scalp Skin, External Approach (ICD-10-PCS; 2017-05-24)
PROC: 0HD0XZZ Extraction of Scalp Skin, External Approach (ICD-10-PCS; 2017-05-24)
PROC: 30233N1 Transfusion of Nonautologous Red Blood Cells into Peripheral Vein, Percutaneous Approach (ICD-10-PCS; 2017-05-25)
PROC: 03HY32Z Insertion of Monitoring Device into Upper Artery, Percutaneous Approach (ICD-10-PCS; 2017-05-26)
PROC: 02HV33Z Insertion of Infusion Device into Superior Vena Cava, Percutaneous Approach (ICD-10-PCS; 2017-05-26)
PROC: 0BCB8ZZ Extirpation of Matter from Left Lower Lobe Bronchus, Via Natural or Artificial Opening Endoscopic (ICD-10-PCS; 2017-05-26)
PROC: 0BC68ZZ Extirpation of Matter from Right Lower Lobe Bronchus, Via Natural or Artificial Opening Endoscopic (ICD-10-PCS; 2017-05-26)
PROC: 0W9B30Z Drainage of Left Pleural Cavity with Drainage Device, Percutaneous Approach (ICD-10-PCS; 2017-05-29)
PROC: 30233R1 Transfusion of Nonautologous Platelets into Peripheral Vein, Percutaneous Approach (ICD-10-PCS; 2017-05-29)
PROC: 02HV33Z Insertion of Infusion Device into Superior Vena Cava, Percutaneous Approach (ICD-10-PCS; 2017-06-04)
DX: S06.5X9A Traumatic subdural hemorrhage with loss of consciousness of unspecified duration, initial encounter (principal); J96.01 Acute respiratory failure with hypoxia; S27.322A Contusion of lung, bilateral, initial encounter; S06.6X9A Traumatic subarachnoid hemorrhage with loss of consciousness of unspecified duration, initial encounter; A41.52 Sepsis due to Pseudomonas; R65.21 Severe sepsis with septic shock; J69.0 Pneumonitis due to inhalation of food and vomit; J96.02 Acute respiratory failure with hypercapnia; J80 Acute respiratory distress syndrome; S22.080A Wedge compression fracture of T11-T12 vertebra, initial encounter for closed fracture; E87.4 Mixed disorder of acid-base balance; J15.1 Pneumonia due to Pseudomonas; S32.019A Unspecified fracture of first lumbar vertebra, initial encounter for closed fracture; D69.6 Thrombocytopenia, unspecified; J93.0 Spontaneous tension pneumothorax; J15.6 Pneumonia due to other Gram-negative bacteria; S32.029A Unspecified fracture of second lumbar vertebra, initial encounter for closed fracture; S32.039A Unspecified fracture of third lumbar vertebra, initial encounter for closed fracture; S32.049A Unspecified fracture of fourth lumbar vertebra, initial encounter for closed fracture; D62 Acute posthemorrhagic anemia; E87.0 Hyperosmolality and hypernatremia; N17.9 Acute kidney failure, unspecified; S02.0XXA Fracture of vault of skull, initial encounter for closed fracture; S01.01XA Laceration without foreign body of scalp, initial encounter; S02.113A Unspecified occipital condyle fracture, initial encounter for closed fracture; S42.021A Displaced fracture of shaft of right clavicle, initial encounter for closed fracture; S01.81XA Laceration without foreign body of other part of head, initial encounter; E87.70 Fluid overload, unspecified; Z66 Do not resuscitate; F02.80 Dementia in other diseases classified elsewhere, unspecified severity, without behavioral disturbance, psychotic disturbance, mood disturbance, and anxiety; R40.2422 Glasgow coma scale score 9-12, at arrival to emergency department; V29.9XXA Motorcycle rider (driver) (passenger) injured in unspecified traffic accident, initial encounter; Y92.410 Unspecified street and highway as the place of occurrence of the external cause
CPT/HCPCS: 31500; 36430; 36556; 36600; 43753; 51702; 70450; 70486; 71045; 71260; 71275; 72125; 72129; 72132; 72170; 74018; 74177; 76937; 80048; 80053; 80200; 80202; 80307; 81001; 82533; 82550; 82552; 82805; 82948; 83605; 83735; 83930; 84100; 84132; 84155; 84295; 85007; 85014; 85018; 85025; 85027; 85610; 85730; 86703; 86850; 86900; 86901; 86920; 87015; 87040; 87070; 87077; 87102; 87116; 87186; 87205; 87206; 87633; 87641; 90471; 93306; 93970; 94003; 94640; 94664; 94770; 94799; 95819; 96365; 96375; 96376; 99291; G0390; J0131; J0171; J0330; J0461; J0610; J0690; J0692; J0744; J1120; J1325; J1580; J1644; J1650; J1720; J1815; J1940; J1953; J1956; J2020; J2060; J2185; J2248; J2250; J2370; J2405; J2543; J3010; J3260; J3370; J3480; J7030; J7040; J7050; J7060; J7070; J7613; P9016; P9031; P9035; P9047; Q9967